=== PATIENT | female | born 2005 | race Caucasian/White ===

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

== ENCOUNTER 2024-04-09 10:20 | Observation (INO) | payer BC, SELFPAY ==
--- OUTSIDE RECORDS SUMMARY | 2024-04-09 10:30 | XMS_ITS | CCD ---
Author Organization [facility] Care Team Providers Care Rough Rice Grader Name Role Phone Adonay ([facility]), ALVARADO Cameron Attending Provider [phone] Health Dept, [facility] Primary Care Provider [phone] Adonay ([facility])Madeline Attending Orestes Adonay ([facility]), Madeline Cameron Admitting [facility] Dept, [facility] Primary Care Unavailable Problems Problem Classification Problem Date Documented Da te Episodic/Chronic Other and delivery including normal (1 source) Encounter for supervision of normal , unspecified, first trimester; Translations: [Encounter for supervision of normal , unspecified, first trimester] Onset: 01-08-2024 Episodic Results Test Name Value Interpretation Reference Range Facil ity US OB >= 14 weeks Fetuson US OB >= 14 weeks Fetus [facility] Main [address] [address] Ultrasound Report Signed Patient: Casandra Dias MR#: [id number] : 2005 Acct:[id number] Age/Sex: 18 / F ADM Date: 01/08/24 Loc: Room: Type: [facility] Attending Dr: Madeline Urias ([facility]) ALVARADO Ordering Provider: Madeline Urias APRN, WHCNP Date of Service: 01/08/24 US/US OB >= 14 weeks Fetus: Z3A.01 Copies to: Madeline Urias APRN, WHCNP US OB >= 14 weeks Fetus 01/08/2024 11:27 AM SIGNS AND SYMPTOMS: Check dates, cramping COMPARISON: None. TECHNIQUE: Limited pelvic ultrasound using transvesical sonography. FINDINGS: An early intrauterine is identified. The visualized pole has an estimated gestational age of 6 weeks 4 days by crown-rump length which measures 6.79 mm . Cardiac flicker is visualized. heart rate could not be obtained. A normal amount of amniotic fluid is present. There is no evidence for placenta previa or subchorionic hemorrhage. Pelvic survey reveals no gross abnormalities. US/US OB >= 14 weeks Fetus IMPRESSION: Single live IUP with an estimated gestational age of 6w4d weeks/days. Cardiac flicker is visualized. heart rate could not be obtained. Impression dictated by: Henri Mario M.D.01/08/2024 4:22 PM Dictation Location: [place] [address] Tech: Barbara Nuñez Transcribed By: TYLER 01/08/24 1622 Dictated By: Henri Mario II, MD 01/08/24 161 Signed By: 01/08/24 1622 Normal [facility] Encounters Encounter Date Encounter Type Care Provider Facility Start: 01-08-2024 End: 01-08-2024 ambulatory Madeline Urias ([facility]) Facility:[facility] Start: 01-08-2024 End: 01-08-2024 ambulatory [facility] Dept Work Phone: [facility] Work Phone: Start: 01-08-2024 End: 01-08-2024 Patient encounter procedure [facility] Dept Work Phone: [facility] Main [place] Work Phone: Procedures Date Procedure Procedure Detail Performing Clinician Start: 01-08-2024 Diagnostic ultrasoun d of gravid uterus [facility] Dept Work Phone: Payers Date Payer Category Payer Medicaid [id number] 81 [id number] 2024 Self-pay 2024 Unknown [id number] Unknown [id number] Social History Date Type Detail Facility Tobacco smoking stat [facility] Unknown if ever smoked [facility] Work Phone: Start: 2005 Sex Assigned At Female F [facility] Evaluation note Note Date & Type Note Facility Evaluation note No assessment information availa ble [facility] Work Phone: Chief Complaint and Reason for Visit Chief Complaint Z3A.01 Advance Directives No Advanced Directives Records Found Advance Directive Response Recorded Date/ Time Advance Directives No January 07 11:22am Summary Purpose Family History No Family History Records Found Additional Source Comments Care Teams (unrecognized sec tion and content) Team Status: Active Member Role Status Dates [facility] Primary Care Provider Active Team Status: Inactive Member Role Status Dates Madeline Urias ([facility]) , MACHINE REPAIRER MAINTENANCE Attending Provider Active Start: January 08, 2024 End: January 08, 2024 [facility] Primary Care Provider Active Start: January 08, 2024 End: January 08, 2024 Goals (unrecognized section and content) Goals may be documented in a n alternate section INFORMATION SOURCE (unrecogn ized section and content) DATE CREATED AUTHOR 03/18/2024 [facility] y[facility] FOR RECORDS PERTAINING TO PATIENTS WHO ARE OR HAVE BEEN ENROLLED IN A CHEMICAL DEPENDENCY/SUBSTANCEABUSE PROGRAM, SOME INFORMATION MAY BE OMITTED. This clinical summary was aggregated from multiple sources. Caution should be exercised in using it in the provision of clinical care. This summary normalizes information from multiple sources, and as a consequence, information in this document may materially change the coding, format and clinical context of patient data. In addition, data may be omitted in some cases. CLINICAL DECISIONS SHOULD BE BASED ON THE PRIMARY CLINICAL RECORDS. [employer] provides no warranty or guarantee of the accuracy or completeness of information in this document.
== END 2024-04-09 11:06 | disposition home or self-care (01) ==
PROVIDERS: Admitting Provider Obstetrics & Gynecology; Visit Provider Obstetrics & Gynecology
DX: O36.8120 Decreased fetal movements, second trimester, not applicable or unspecified (principal); Z3A.19 19 weeks gestation of pregnancy
CPT/HCPCS: G0378; G0379

== ENCOUNTER 2024-04-27 11:01 | Outpatient (OUT) | payer BC, SELFPAY ==
--- NOTE | 2024-04-27 11:04 | US_ITS ---
[address] [address] Patient Name: SAMIRA STUART MRN: [id number] date: 2005 Sex: F Assigned Patient Location: [facility] Current Patient Location: [facility] Accession/Order Number: [id number] Exam Date: 04/27/2024 11:04 Report Date: 04/27/2024 12:34 At the request of: AVERY RAYGOZA Procedure: US OB cervical length EXAMINATION: US OB anatomy, US OB cervical length HISTORY: ANATOMY COMPARISON: No relevant comparison available. TECHNIQUE: Transabdominal sonographic examination was performed for obstetrical and evaluation. FINDINGS: Number: 1 Heart Rate: 137 H.B. /min Amniotic Fluid Volume: Subjectively normal Placental Location: Anterior with lower margin 8.5 cm from os. Cervix Length: 4.0; closed. ANATOMY: Normal Structures -cerebellum, choroid plexus, cisterna magna, lateral cerebral ventricles, orbits, midline falx, hard palate, four-chamber heart, RVOT, LVOT, stomach, kidneys, bladder, umbilical cord insertion into abdomen, three-vessel cord, cervical spine, thoracic spine, lumbar spine, sacral spine, right upper extremity, left upper extremity, right lower extremity, left lower extremity. SUBOPTIMALLY SEEN: None ABNORMALITIES: None BIOMETRY: BPD: 5.5 cm; 22 weeks 5 days; 67% HC: 20.2 cm; 22 weeks 2 days; 46% AC: 17.6 cm; 22 weeks 4 days; 55% FL: 4.1 cm; 23 weeks 0 days; 69% EFW:527 g; 73% FL/AC: 22.9 FL/BPD: 73.7 HC/AC: 1.15 GESTATIONAL AGE: Age by EDC: 22 weeks 1 day LATASHA by EDC: 08/30/2024 Age by current US: 22 weeks 5 days LATASHA by current US: 08/26/2024 US/US OB cervical length IMPRESSION: 1. Single live intrauterine with growth detailed above. Electronically authenticated by: ROWAN BARRIOS Date: 04/27/2024 12:34
--- NOTE | 2024-04-27 11:04 | US_ITS ---
[address] [address] Patient Name: SAMIRA STUART MRN: [id number] date: 2005 Sex: F Assigned Patient Location: [facility] Current Patient Location: [facility] Accession/Order Number: [id number] Exam Date: 04/27/2024 11:05 Report Date: 04/27/2024 12:34 At the request of: AVERY RAYGOZA Procedure: US OB anatomy EXAMINATION: US OB anatomy, US OB cervical length HISTORY: ANATOMY COMPARISON: No relevant comparison available. TECHNIQUE: Transabdominal sonographic examination was performed for obstetrical and evaluation. FINDINGS: Number: 1 Heart Rate: 137 H.B. /min Amniotic Fluid Volume: Subjectively normal Placental Location: Anterior with lower margin 8.5 cm from os. Cervix Length: 4.0; closed. ANATOMY: Normal Structures -cerebellum, choroid plexus, cisterna magna, lateral cerebral ventricles, orbits, midline falx, hard palate, four-chamber heart, RVOT, LVOT, stomach, kidneys, bladder, umbilical cord insertion into abdomen, three-vessel cord, cervical spine, thoracic spine, lumbar spine, sacral spine, right upper extremity, left upper extremity, right lower extremity, left lower extremity. SUBOPTIMALLY SEEN: None ABNORMALITIES: None BIOMETRY: BPD: 5.5 cm; 22 weeks 5 days; 67% HC: 20.2 cm; 22 weeks 2 days; 46% AC: 17.6 cm; 22 weeks 4 days; 55% FL: 4.1 cm; 23 weeks 0 days; 69% EFW:527 g; 73% FL/AC: 22.9 FL/BPD: 73.7 HC/AC: 1.15 GESTATIONAL AGE: Age by EDC: 22 weeks 1 day LATASHA by EDC: 08/30/2024 Age by current US: 22 weeks 5 days LATASHA by current US: 08/26/2024 US/US OB anatomy IMPRESSION: 1. Single live intrauterine with growth detailed above. Electronically authenticated by: ROWAN BARRIOS Date: 04/27/2024 12:34
--- OUTSIDE RECORDS SUMMARY | 2024-04-27 11:07 | XMS_ITS | CCD ---
Author Organization [facility] Inform ion [facility] Care Team Providers Care Peer Educator Name Role Phone Adonay ([facility]), ALVARADO Cameron Attending Provider Health Dept, [facility] Primary Care Provider [phone] Adonay ([facility])Madeline [facility] ([facility]), Madeline Cameron [facility] Primary [facility] Unavailable AVERY RAYGOZA Attending Unavailable Problems Problem Classification Problem Date Documented Da te Episodic/Chronic Other and delivery including normal (1 source) Encounter for supervision of normal , unspecified, first trimester; Translations: [Encounter for supervision of normal , unspecified, first trimester] Onset: 01-08-2024 Episodic Results Test Name Value Interpretation Reference Range Facil ity US OB >= 14 weeks Fetuson US OB >= [address] [facility] Main [address] [address] Ultrasound Report Signed Patient: Casandra Dias MR#: [id number] : 2005 Acct:[id number] Age/Sex: 18 / F ADM Date: 01/08/24 Loc: Room: Type: [facility] Attending Dr: Madeline Urias ([facility]) ALVARADO Ordering Provider: Madeline Urias APRN, WHCNP [...] Henri Mario M.D.01/08/2024 4:22 PM Dictation Location: [place] [address] Tech: Barbara Nuñez Transcribed By: TYLER 01/08/24 1622 Dictated By: Henri Mario II, MD 01/08/24 1617 Signed By: 01/08/24 1622 Normal [facility] Encounters Encounter Date Encounter Type Care Provider Facility Start: 04-15-2024 End: 04-15-2024 ambulatory AVERY RAYGOZA Not Available Start: 01-08-2024 End: 01-08-2024 ambulatory Madeline Urias ([facility]) Facility:[facility] Start: 01-08-2024 End: 01-08-2024 [facility] Work Phone: Start: 01-08-2024 End: 01-08-2024 [facility] Main [place] Work Phone: Procedures Date Procedure Procedure Detail Performing Clinician Start: 01-08-2024 Diagnostic ultrasoun [facility] gravid [facility] Work Phone: Payers Date Payer Category Payer Medicaid [id number] 81 [id number] 2024 Self-pay 2023 Unknown [id number] 2004 Unknown [id number] Unknown [id number] Social History Date Type Detail Facility [facility] Work Phone: Start: 2005 Sex Assigned At Female F [facility] Evaluation note Note Date & Type Note Facility Evaluation note No assessment information availa ble [facility] Work Phone: Chief Complaint and Reason for Visit Chief Complaint Z3A.01 Advance Directives No Advanced Directives Records Found Advance Directive Response Recorded Date/ Time Advance Directives No January 07 11:22am Summary Purpose Family History No Family History Records FoundNo Family History Records Found Additional Source Comments Care Teams (unrecognized sec tion and content) Team Status: Active Member Role Status Dates [facility] Primary Care Provider Active Team Status: Inactive Member Role Status Dates Madeline Urias ([facility]) , ENCYCLOPEDIA RESEARCH WORKER Attending Provider Active Start: January 08, 2024 End: January 08, 2024 [facility] Primary Care Provider Active Start: January 08, 2024 End: January 08, 2024 Goals (unrecognized section and content) Goals may be documented in a n alternate section INFORMATION SOURCE (unrecogn ized section and content) DATE CREATED AUTHOR 03/18/2024 [facility] y[facility]ician [facility] DATE CREATED AUTHOR AUTHOR'S KPIZ ATION 04/16/2024 [facility] dical Specialists [facility] FOR RECORDS PERTAINING TO PATIENTS WHO ARE [...] BE BASED ON THE PRIMARY CLINICAL RECORDS. [facility] [employer] [facility]. provides no warranty or guarantee of the accuracy or completeness of information in this document.
== END 2024-04-27 11:02 | disposition home or self-care (01) ==
LOC: NOMS 11:01
PROVIDERS: Visit Provider Obstetrics & Gynecology
DX: Z36.89 Encounter for other specified antenatal screening (principal); Z3A.22 22 weeks gestation of pregnancy
CPT/HCPCS: 76805; 76817

== ENCOUNTER 2024-05-24 11:51 | Outpatient (OUT) | payer BC, SELFPAY ==
--- OUTSIDE RECORDS SUMMARY | 2024-05-24 12:00 | XMS_ITS | CCD ---
Author Organization [facility] Inform ion [facility] Care Team Providers Care Video Producer Name Role Phone Adonay ([facility]), ALVARADO Cameron Attending Provider Health Dept, [facility] Primary Care Provider Adonay ([facility])Madeline Attending Unavailcarolyn e Adonay ([facility]), Madeline Cameron [facility] Primary Care Unavailable AVERY RAYGOZA Attending Unavailable AVERY RAYGZOA Attending Unavailable Problems Problem Classification Problem Date Documented Da te Episodic/Chronic Other and delivery including normal (1 source) Encounter for supervision of normal , unspecified, first trimester; Translations: [Encounter for supervision of normal , unspecified, first trimester] Onset: 01-08-2024 Episodic Results Test Name Value Interpretation Reference Range Facil ity US OB >= 14 weeks Fetuson US OB >= 14 weeks Fetus [facility] [place] [address] Ultrasound Report Signed Patient: Casandra Dias MR#: [id number] : 2005 Acct:[id number] Age/Sex: 18 / F ADM Date: 01/08/24 Loc: Room: Type: [facility] Attending Dr: Madeline Urias ([facility]) ALVARADO Ordering Provider: Madeline Urias [...] Henri Mario M.D.01/08/2024 4:22 PM Dictation Location: [place] [address] Tech: Barbara Nuñez Transcribed By: TYLER 01/08/24 1622 Dictated By: Henri Mario II, MD 01/08/24 1617 Signed By: 01/08/24 1622 Normal [facility] Encounters Encounter Date Encounter Type Care Provider Facility Start: 05-12-2024 End: 05-12-2024 ambulatory AVERY IDALMIS Not Available Start: 04-15-2024 End: 04-15-2024 ambulatory AVERY IDALMIS Not Available Start: 01-08-2024 End: 01-08-2024 ambulatory Madeline Urias ([facility]) Facility:[facility] Start: 01-08-2024 End: 01-08-2024 ambulatory [employer] [facility] Dept Work Phone: [facility] Work Phone: Start: 01-08-2024 End: 01-08-2024 Patient encounter procedure [employer] [facility] Dept Work Phone: [facility]-Ul[facility]ound Main [place] Work Phone: Procedures Date Procedure Procedure Detail Performing Clinician Start: 01-08-2024 Diagnostic ultrasoun d of gravid uterus [employer] [facility] Work Phone: Payers Date Payer Category Payer Medicaid [id number] 81 [id number] 2024 Self-pay 2023 Unknown [id number] 2004 Unknown [id number] 2004 Unknown [id number] Unknown [id number] Social History Date Type Detail Facility [facility] Work Phone: Start: 2005 Sex Assigned At Female F [facility] Evaluation note Note Date & Type Note Facility Evaluation note No assessment information availa ble [facility] Work Phone: Chief Complaint and Reason for Visit Chief Complaint Z3A.01 Advance Directives No Advanced Directives Records Found Advance Directive Response Recorded Date/ Time Advance Directives No January 07 024 11:22am Summary Purpose Family History No Family History Records FoundNo Family History Records Found Additional Source Comments Care Teams (unrecognized sec tion and content) Team Status: Active Member Role Status Dates [facility] Active Team Status: Inactive Member Role Status Dates Madeline Urias ([facility]) , DELIVER DRIVER Attending Provider Active Start: January 08, 2024 End: January 08, 2024 [facility] Active Start: January 08, 2024 End: January 08, 2024 Goals (unrecognized section and content) Goals may be documented in a n alternate section INFORMATION SOURCE (unrecogn ized section and content) DATE CREATED AUTHOR 03/18/2024 [facility] DATE CREATED AUTHOR CELESTE ESQUIVEL 05/16/2024 [facility] dical Specialists [employer] FOR RECORDS PERTAINING TO PATIENTS WHO ARE [...] BE BASED ON THE PRIMARY CLINICAL RECORDS. [facility] [email or web address] [facility]. provides no warranty or guarantee of the accuracy or completeness of information in this document.
[2024-05-24 13:19] LABS: Basophils Percent Auto 0.3 % (0.2-2.0); Eosinophils Absolute Auto 0.1 10^3/uL (0.0-0.7); Eosinophils Percent Auto 1.4 % (0.9-7.0); Hematocrit 30.5 % (36.0-48.0); Hemoglobin 9.9 g/dL (12.0-16.0); Immature Granulocytes Abs Auto 0.05 10^3/uL (0.00-0.03); Immature Granulocytes Pct Auto 0.5 % (0.0-0.5); Lymphocytes Percent Auto 19.1 % (20.5-60.0); Mean Corpuscular HGB Conc 32.5 g/dL (29.9-35.2); Mean Corpuscular Hemoglobin 30.7 pg (26.7-34.0); Mean Corpuscular Volume 94.7 fL (81.0-99.0); Mean Platelet Volume 9.3 fL (9.5-13.5); Monocytes Absolute Auto 0.6 10^3/uL (0.3-0.8); Neutrophils Absolute Auto 7.5 10^3/uL (1.4-6.5); Neutrophils Percent Auto 72.7 % (43.0-75.0); Platelet Count 297 10^3/uL (150-450); Red Blood Count 3.22 10^6/uL (4.20-5.40); Red Cell Distribution Width 12.7 % (11.0-15.0); White Blood Count 10.3 10^3/uL (4.0-11.0)
[2024-05-24 13:32] LABS: Glucose 1 Hour 114 mg/dL (<130)
== END 2024-05-24 11:52 | disposition home or self-care (01) ==
LOC: LAB 11:52
PROVIDERS: Visit Provider Obstetrics & Gynecology
DX: Z13.1 Encounter for screening for diabetes mellitus (principal)
CPT/HCPCS: 36415; 82950; 85025

== ENCOUNTER 2024-06-16 12:20 | Emergency (ER) | payer BC, SELFPAY ==
[2024-06-16] VITALS (16 sets, daily range): BP systolic 110–115; BP diastolic 63–73; PULSE 71–94; TEMP 37.1; O2SAT 96–100; BMI 21.9
--- NOTE | 2024-06-16 12:42 | ECG_ITS ---
The [facility] Test Date: 2024-06-16 Pat Name: SAMIRA STUART Department: Room: - Gender: Female Movement Assembler: : 2005 Requested By: [id number] Order Number: [id number] Reading MD: JT JACKSON Measurements Intervals [place] Rate: 86 P: 24 [place]: 132 QRS: 104 QRSD: 86 T: 15 QT: 352 QTc: 395 Interpretive Statements 1100 Sinus rhythm 7100 Abnormal right axis deviation 9130 borderline ECG No previous ECG available for comparison Electronically Signed On 06-16-2024 18:11:27 EDT by JT JACKSON
--- NOTE | 2024-06-16 12:48 | ED_ITS ---
HPI HPI - General Adult General Chief complaint: Syncope Stated complaint: FAINT, LIGHTHEADEDNESS Time Seen by Provider: 06/16/24 12:44 Source: patient and friend Mode of arrival: walk-in Limitations: no limitations History of Present Illness HPI narrative: Patient is a 18-year-old female who is presenting with a near syncopal episode at work today. 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 Patient is approximate 29 weeks . Patient says that she is drinking a lot of fluid typically and does not feel that she is dehydrated. Patient was at work, she became lightheaded, clammy, flushed, and felt like she was going to pass out. Patient was able to sit down. She did not have a true syncopal episode. Patient called her OB office and they recommended she come to the ER for evaluation. Patient is a G1, P0. Patient has no pelvic pain, vaginal bleeding. No urinary frequency urgency or burning. No flank pain or back pain. Patient's boyfriend is at bedside. Patient has no headache or neck pain. Patient feels better at this time. Patient came into the ER for evaluation, she takes no other medications daily besides vitamins. Patient does have a history of iro n deficiency. All systems are negative except as noted/marked. All systems reviewed and otherwise negative. Nurses note and vital signs reviewed and patient is not hypoxic. General: The patient appears well and in no apparent distress. Patient is resting comfortably on cart. Patient is not toxic, lethargic, or listless Skin: Warm, dry, no pallor noted. There is no rash noted. No petechiae, purpura. Head: Normocephalic, atraumatic Eye: Normal conjunctiva, no drainage, EOMI. PERRL Ears, Nose, Mouth, and Throat: oral mucosa is moist. Nares patent. Mouth without vesicles. Cardiovascular: Regular Rate and Rhythm, no murmur, gallop, rub Respiratory: Patient is in no distress, no accessory muscle use, lungs are clear to auscultation, no wheezing, rales or rhonchi Back: non-tender, no CVA tenderness bilaterally to percussion. No CT LS midline pain GI: Gravid uterus, no pain to her abdomen. No suprapubic tenderness to palpation. No tenderness to palpation, no masses appreciated. No rebound, guarding, or rigidity noted. No distention Musculoskeletal: Patient has full range of motion of all of the extremities, no motor, sensory, or focal neurological deficits Neurological: A&O x4, normal speech Psychiatric: Cooperative Related Data Home Medications ?Medication ?Instructions ?Recorded ?Confirmed pediatric multivitamin no.49 1 tab PO DAILY 04/09/24 06/16/24 (Flintstones Gummies chewable tablet) Allergies Allergy/AdvReac Type Severity Reaction Status Date / Time No Known Drug Allergies Allergy Verified 06/16/24 12:32 Opioid HPI Opioid Management Most Recent Opioid Data: No Data to Display Exam Constitutional Vital Signs, click to edit/add: Last Vital Signs Temp 98.7 F 06/16/24 12:26 Pulse 75 06/16/24 14:20 Resp 19 06/16/24 14:20 BP 112/65 06/16/24 13:01 Pulse Ox 98 06/16/24 14:20 O2 Del Method Room Air 06/16/24 12:26 Course Vital Signs Vital signs: Vital Signs Temperature 98.7 F 06/16/24 12:26 Pulse Rate 76 06/16/24 12:26 Respiratory Rate 16 06/16/24 12:26 Blood Pressure 115/73 06/16/24 12:26 Pulse Oximetry 96 06/16/24 12:26 Oxygen Delivery Method Room Air 06/16/24 12:26 Temperature 98.7 F 06/16/24 12:26 Pulse Rate 75 06/16/24 14:20 Respiratory Rate 19 06/16/24 14:20 Blood Pressure 112/65 06/16/24 13:01 Pulse Oximetry 98 06/16/24 14:20 Oxygen Delivery Method Room Air 06/16/24 12:26 Medical Decision Making [facility] Narrative Medical decision making narrative: Patient EKG shows no acute abnormalities. Patient's orthostatics were negative. Patient had a cardiac workup along with urine sample. Orthostatics were negative. Patient was given 1 L of IV fluids. Electrolytes showed no acute abnormalities. Patient has anemia. Patient will follow-up with TURNING SANDER OPERATOR. No questions at DC Lab Data Labs: Lab Results 06/16/24 06/16/24 Range/Units 13:06 14:05 WBC 13.3 H (4.0-11.0) 10^3/uL RBC 3.24 L (4.20-5.40) 10^6/uL Hgb 9.3 L (12.0-16.0) g/dL Hct 28.9 L (36.0-48.0) % MCV 89.2 (81.0-99.0) fL MCH 28.7 (26.7-34.0) pg MCHC 32.2 (29.9-35.2) g/dL RDW 12.7 (11.0-15.0) % Plt Count 296 (150-450) 10^3/uL MPV 9.4 L (9.5-13.5) fL Neut % (Auto) 79.4 H (43.0-75.0) % Lymph % (Auto) 13.4 L (20.5-60.0) % [place] % (Auto) 5.4 (1.7-12.0) % Eos % (Auto) 0.2 L (0.9-7.0) % Baso % (Auto) 0.2 (0.2-2.0) % Neut # (Auto) 10.6 H (1.4-6.5) 10^3/uL Lymph # (Auto) 1.8 (1.2-3.8) 10^3/uL [place] # (Auto) 0.7 (0.3-0.8) 10^3/uL Eos # (Auto) 0.0 (0.0-0.7) 10^3/uL Baso # (Auto) 0.0 (0.0-0.1) 10^3/uL Abs Immat Gran (auto) 0.19 H (0.00-0.03) 10^3/uL Imm/Tot Granulo (auto) 1.4 H (0.0-0.5) % Sodium 136 (136-145) mmol/L Potassium 3.9 (3.5-5.1) mmol/L Chloride 103 (98-107) mmol/L Carbon Dioxide 24.3 (21.0-32.0) mmol/L Anion Gap 12.6 BUN 5.0 L (6.4-19.3) mg/dL Creatinine 0.53 L (0.55-1.02) mg/dL Est GFR ( Amer) >60 (>=60) Est GFR (Non-Af Amer) >60 (>=60) BUN/Creatinine Ratio 9.4 Glucose 84 (74-106) mg/dL Calcium 8.5 (8.5-10.1) mg/dL Magnesium 1.6 L (1.8-2.4) mg/dL Total Bilirubin 0.4 (0.2-1.0) mg/dL AST 14 L (15-37) U/L ALT 17 (14-59) U/L Alkaline Phosphatase 99 (46-116) U/L Troponin I High Sens <4.0 L (4.0-51.3) pg/mL Total Protein 6.6 (6.4-8.2) g/dL Albumin 2.7 L (3.4-5.0) g/dL Globulin 3.9 g/dL Albumin/Globulin Ratio 0.7 Urine Color Lt. yellow (YELLOW) Urine Clarity Clear (CLEAR) Urine pH 6.5 (5.0-9.0) Ur Specific [place] <=1.005 A (1.005-1.025) Urine Protein Negative (NEG/TRACE) mg/dL Urine Glucose (UA) Negative (NEGATIVE) mg/dL Urine Ketones Negative (NEGATIVE) mg/dL Urine Occult Blood Negative (NEGATIVE) Urine Nitrite Negative (NEGATIVE) Urine Bilirubin Negative (NEGATIVE) Urine Urobilinogen 0.2 (0.2-1.0) EU/dL Ur Leukocyte Esterase Small A (NEGATIVE) Urine RBC 0-2 (0-2) #/HPF Urine WBC 2-5 A (NONE SEEN) #/HPF Ur Squamous Epith Cells Few A (NONE/RARE) #/LPF Urine Crystals None seen (None Seen) #/HPF Urine Bacteria Trace A (NONE SEEN) #/HPF Urine Casts None seen (NONE SEEN) #/LPF Urine Mucus Trace A (NONE SEEN) ECG Data Attestation: I personally reviewed and interpreted this ECG as follows: (EKG interpretation. Normal sinus rhythm at 86 beats a minute. Normal axis deviation. No acute ST elevation, no acute ectopy. QTc of 395) Discharge Plan Discharge Stand Alone Forms: Work/School Release, Portal Instructions Chief Complaint: Syncope Clinical Impression: Near syncope Patient Disposition: Home, Self-Care Condition: Fair Prescriptions / Home Meds: No Action Flintstones Gummies Tablet,Chewable 1 tab PO DAILY Print Language: Azeri Instructions: Near Syncope (ED) Additional Instructions: Increase fluids as you have been. Continue vitamins. Follow-up with PCP and TURNING SANDER OPERATOR. No acute findings on today's testing Referrals: Physician,Non-Staff, MD [Primary Care Provider] - 1 week
[2024-06-16 13:13] LABS: Basophils Percent Auto 0.2 % (0.2-2.0); Eosinophils Percent Auto 0.2 % (0.9-7.0); Hematocrit 28.9 % (36.0-48.0); Hemoglobin 9.3 g/dL (12.0-16.0); Immature Granulocytes Abs Auto 0.19 10^3/uL (0.00-0.03); Immature Granulocytes Pct Auto 1.4 % (0.0-0.5); Lymphocytes Absolute Auto 1.8 10^3/uL (1.2-3.8); Lymphocytes Percent Auto 13.4 % (20.5-60.0); Mean Corpuscular HGB Conc 32.2 g/dL (29.9-35.2); Mean Corpuscular Hemoglobin 28.7 pg (26.7-34.0); Mean Corpuscular Volume 89.2 fL (81.0-99.0); Mean Platelet Volume 9.4 fL (9.5-13.5); Monocytes Absolute Auto 0.7 10^3/uL (0.3-0.8); Monocytes Percent Auto 5.4 % (1.7-12.0); Neutrophils Absolute Auto 10.6 10^3/uL (1.4-6.5); Neutrophils Percent Auto 79.4 % (43.0-75.0); Platelet Count 296 10^3/uL (150-450); Red Blood Count 3.24 10^6/uL (4.20-5.40); Red Cell Distribution Width 12.7 % (11.0-15.0); White Blood Count 13.3 10^3/uL (4.0-11.0)
[2024-06-16 13:22] LABS: Magnesium 1.6 mg/dL (1.8-2.4)
[2024-06-16 13:31] LABS: Alanine Aminotransferase 17 U/L (14-59); Albumin Globulin Ratio 0.7; Albumin Level 2.7 g/dL (3.4-5.0); Alkaline Phosphatase 99 U/L (46-116); Anion Gap 12.6; Aspartate Amino Transferase 14 U/L (15-37); BUN Creatinine Ratio 9.4; Bilirubin Total 0.4 mg/dL (0.2-1.0); Calcium 8.5 mg/dL (8.5-10.1); Carbon Dioxide 24.3 mmol/L (21.0-32.0); Chloride 103 mmol/L (98-107); Estimated GFR (African America >60 (>=60); Estimated GFR (Non-African Ame >60 (>=60); Globulin 3.9 g/dL; Glucose 84 mg/dL (74-106); Potassium 3.9 mmol/L (3.5-5.1); Sodium 136 mmol/L (136-145); Total Protein 6.6 g/dL (6.4-8.2); Troponin I High Sensitivity <4.0 pg/mL (4.0-51.3)
[2024-06-16 14:16] LABS: Bilirubin Urine NEGATIVE (NEGATIVE); Blood Urine NEGATIVE (NEGATIVE); Clarity Urine CLEAR (CLEAR); Color Urine LT. YELLOW (YELLOW); Glucose Urine UA NEGATIVE (NEGATIVE); Ketones Urine NEGATIVE (NEGATIVE); Leukocyte Esterase Urine SMALL (NEGATIVE); Nitrite Urine NEGATIVE (NEGATIVE); Protein Urine NEGATIVE (NEG/TRACE); Specific Gravity Urine <=1.005 (1.005-1.025); Urobilinogen Urine 0.2 EU/dL (0.2-1.0); pH Urine 6.5 (5.0-9.0)
[2024-06-16 14:25] LABS: Bacteria Urine TRACE #/HPF (NONE SEEN); Cast Seen? NONE SEEN #/LPF (NONE SEEN); Crystals Seen? None Seen #/HPF (None Seen); Mucus Urine TRACE (NONE SEEN); RBC Urine 0-2 #/HPF (0-2); Squamous Epithelial Cell Urine FEW #/LPF (NONE/RARE)
== END 2024-06-16 14:52 | disposition home or self-care (01) ==
PROVIDERS: Emergency Provider Emergency Medicine
DX: O99.891 Other specified diseases and conditions complicating pregnancy (principal); R55 Syncope and collapse; Z3A.29 29 weeks gestation of pregnancy
CPT/HCPCS: 36415; 80053; 81001; 83735; 84484; 85025; 93005; 99284

== ENCOUNTER 2024-07-05 13:19 | Outpatient (OUT) | payer BC, SELFPAY ==
[2024-07-05 13:49] LABS: Basophils Percent Auto 0.2 % (0.2-2.0); Eosinophils Absolute Auto 0.1 10^3/uL (0.0-0.7); Hematocrit 29.5 % (36.0-48.0); Hemoglobin 9.1 g/dL (12.0-16.0); Immature Granulocytes Abs Auto 0.08 10^3/uL (0.00-0.03); Immature Granulocytes Pct Auto 0.7 % (0.0-0.5); Lymphocytes Absolute Auto 1.9 10^3/uL (1.2-3.8); Lymphocytes Percent Auto 17.6 % (20.5-60.0); Mean Corpuscular HGB Conc 30.8 g/dL (29.9-35.2); Mean Corpuscular Hemoglobin 27.1 pg (26.7-34.0); Mean Corpuscular Volume 87.8 fL (81.0-99.0); Mean Platelet Volume 9.5 fL (9.5-13.5); Monocytes Absolute Auto 0.6 10^3/uL (0.3-0.8); Monocytes Percent Auto 5.4 % (1.7-12.0); Neutrophils Absolute Auto 8.3 10^3/uL (1.4-6.5); Neutrophils Percent Auto 75.1 % (43.0-75.0); Platelet Count 289 10^3/uL (150-450); Red Blood Count 3.36 10^6/uL (4.20-5.40); Red Cell Distribution Width 13.4 % (11.0-15.0)
[2024-07-05 13:56] LABS: Estimated Average Glucose 100 mg/dL; Glycohemoglobin A1C 5.1 % (4.5-6.2)
[2024-07-06 06:09] LABS: HBsAg Screen Negative (Negative); HCV Ab Non Reactive (Non Reactive); HIV Ab/p24 Ag Screen Non Reactive (Non Reactive)
[2024-07-06 07:19] LABS: Rubella Antibodies, IgG <0.90 index (Immune >0.99)
[2024-07-06 13:08] LABS: Rapid Plasma Reagin, Quant Non Reactive titer (NonRea<1:1)
== END 2024-07-05 13:20 | disposition home or self-care (01) ==
LOC: LAB 13:23
PROVIDERS: Visit Provider Obstetrics & Gynecology
DX: N92.6 Irregular menstruation, unspecified (principal)
CPT/HCPCS: 36415; 83036; 85025; 86592; 86762; 86803; 86850; 86900; 86901; 87086; 87340; 87389

== ENCOUNTER 2024-07-12 08:48 | Outpatient (OUT) | payer BC, SELFPAY ==
--- NOTE | 2024-07-12 08:50 | US_ITS ---
[address] [address] Patient Name: SAMIRA STUART MRN: [id number] date: 2005 Sex: F Assigned Patient Location: [facility] Current Patient Location: [facility] Accession/Order Number: [id number] Exam Date: 07/12/2024 08:51 Report Date: 07/12/2024 11:07 At the request of: AVERY RAYGOZA Procedure: US OB growth EXAMINATION: US OB growth HISTORY: INCONSISTENT SIZE COMPARISON: No relevant comparison available. FINDINGS: Heart Rate: 133 bpm Amniotic Fluid Volume: 9.9 cm, largest fluid pocket 3.9 cm Number: 1 Position: Cephalic presentation, longitudinal lie BIOMETRY: BPD: 8.35 cm; 33 weeks 4 days; 62.10 % HC: 30.94 cm; 34 weeks 4 days; 53.80 % AC: 29.57 cm; 33 weeks 4 days; 67.50 % FL: 6.42 cm; 33 weeks 1 day; 42.30 % EFW: 2206.98 g; 58.30 %, 4 lbs. 14 oz. FL/AC: 21.71 FL/BPD: 76.89 HC/AC: 1.05 GESTATIONAL AGE: Age by EDC: 33 weeks 0 days LATASHA by EDC: 2024-08-30 Age by US: 33 weeks 2 days LATASHA by US: 2024-08-28 US/US OB growth IMPRESSION: Normal interval growth Electronically authenticated by: DAVI BURNHAM Date: 07/12/2024 11:07
== END 2024-07-12 08:49 | disposition home or self-care (01) ==
LOC: NOMS 08:48
PROVIDERS: Visit Provider Obstetrics & Gynecology
DX: O26.843 Uterine size-date discrepancy, third trimester (principal); Z3A.33 33 weeks gestation of pregnancy
CPT/HCPCS: 76816

== ENCOUNTER 2024-07-29 01:19 | Observation (INO) | payer BC, OTHER, SELFPAY ==
--- OUTSIDE RECORDS SUMMARY | 2024-07-29 01:23 | XMS_ITS | CCD ---
Author Organization [facility] InformCount includes the [facility] Care Team Providers Care Regulatory Intern Name Role Phone Adonay ([facility]), ALVARADO Cameron Attending Provider Health Dept, [facility] Primary Care Provider Adonay ([facility])Madeline Attending Unavailcarolyn e Adonay ([facility]), Madeline Cameron Admitting Unavaillocated within [facility] e Health Dept, [facility] Primary Care Unavailable AVERY RAYGOZA Attending Unavailable IDALMIS, AVERY Attending Unavailable JIM SERRANO Attending Unavailable IDALMIS, AVERY Attending Unavailable IDALMIS, AVERY Attending Unavailable IDALMIS, AVERY Attending Unavailable Problems Problem Classification Problem Date Documented Da te Episodic/Chronic Other and delivery including normal (1 source) Encounter for supervision of normal , unspecified, first trimester; Translations: [Encounter for supervision of normal , unspecified, first trimester] Onset: 01-08-2024 Episodic Results Test Name Value Interpretation Reference Range Facil ity US OB >= 14 weeks Fetuson US OB >= 14 weeks Fetus [facility] Main [address] [address] Ultrasound Report Signed Patient: Casandra Dais MR#: [id number] : 2005 Acct:[id number] Age/Sex: 18 / F ADM Date: 01/08/24 Loc: Room: Type: [facility] CLI Attending Dr: Madeline Urias ([facility]) ALVARADO Ordering Provider: Mdaeline rUias APRN, WHCNP Date of Service: 01/08/24 US/US OB >= 14 weeks Fetus: Z3A.01 Copies to: Madeline Rice, CATH LAB TECHNOLOGIST, WHCNP US OB >= 14 weeks Fetus [...] Henri Mario M.D.01/08/2024 4:22 PM Dictation Location: [place] [address] Tech: Barbara Nuñez Transcribed By: TYLER 01/08/24 1622 Dictated By: Henri Mairo II, MD 01/08/24 1617 Signed By: 01/08/24 1622 Normal [facility] Encounters Encounter Date Encounter Type Care Provider Facility Start: 07-19-2024 End: 07-19-2024 ambulatory AVERY IDALMIS Not Available Start: 07-05-2024 End: 07-05-2024 ambulatory AVERY IDALMIS Not Available Start: 06-22-2024 End: 06-22-2024 ambulatory AVERY IDALMIS Not Available Start: 06-07-2024 End: 06-07-2024 ambulatory JIM SERRANO Not Available Start: 05-12-2024 End: 05-12-2024 ambulatory AVERY IDALMIS Not Available Start: 04-15-2024 End: 04-15-2024 ambulatory AVERY IDALMIS Not Available Start: 01-08-2024 End: 01-08-2024 ambulatory Madeline Urias ([facility]) Facility:[facility] Start: 01-08-2024 End: 01-08-2024 ambulatory [place] [facility] Dept Work Phone: [facility] Work Phone: Start: 01-08-2024 End: 01-08-2024 Patient encounter procedure [facility] Work Phone: [facility]-Ultrasound Main [place] Work Phone: Procedures Date Procedure Procedure Detail Performing Clinician Start: 01-08-2024 Diagnostic ultrasoun d of gravid uterus [facility] Work Phone: Payers Date Payer Category Payer Medicaid [id number] 81 [id number] 2024 Self-pay 2023 Unknown [id number] 2004 Unknown [id number] 2.16.84 [id number] 2004 Unknown [id number] 2.16.84 [id number] 2004 Unknown [id number] 2.16.84 [id number] 2004 Unknown [id number] 2.16.84 [id number] 2004 Unknown [id number] 2.16.84 [id number] 2004 Unknown [id number] 2.16.84 [id number] Unknown [id number] 2.16.8 [id number] Social History Date Type Detail Facility [facility] Work Phone: Start: 2005 Sex Assigned At Female F [facility] Evaluation note Note Date & Type Note Facility Evaluation note No assessment information availa ble [facility] Work Phone: Chief Complaint and Reason for Visit Chief Complaint Z3A.01 Advance Directives No Advanced Directives Records Found Advance Directive Response Recorded Date/ Time Advance Directives No January 07 024 11:22am Summary Purpose Family History No Family History Records FoundNo Family History Records Found Additional Source Comments Care Teams (unrecognized sec tion and content) Team Status: Active Member Role Status Dates [facility] Active Team Status: Inactive Member Role Status Dates Madeline Urias ([facility]) , CATH LAB TECHNOLOGIST Attending Provider Active Start: January 08, 2024 End: January 08, 2024 [facility] Dept Primary Care Provider Active Start: January 08, 2024 End: January 08, 2024 Goals (unrecognized section and content) Goals may be documented in a n alternate section INFORMATION SOURCE (unrecogn ized section and content) DATE CREATED AUTHOR 03/18/2024 [facility] y[facility]ician Group DATE CREATED AUTHOR 'S CHAKA ATBRITTANY 07/21/2024 [facility] dical Specialists EPIC FOR RECORDS PERTAINING TO [...] BE BASED ON THE PRIMARY CLINICAL RECORDS. [employer] provides no warranty or guarantee of the accuracy or completeness of information in this document.
[2024-07-29 01:47] VITALS: BP 127/69; PULSE 81
== END 2024-07-29 02:30 | disposition home or self-care (01) ==
LOC: FBC 01:21
PROVIDERS: Admitting Provider Obstetrics & Gynecology; Visit Provider Obstetrics & Gynecology
DX: O36.8130 Decreased fetal movements, third trimester, not applicable or unspecified (principal); Z3A.35 35 weeks gestation of pregnancy
CPT/HCPCS: 59025; G0378; G0379

== ENCOUNTER 2024-08-03 10:18 | Outpatient (OUT) | payer BC, OTHER, SELFPAY ==
--- OUTSIDE RECORDS SUMMARY | 2024-08-03 10:24 | XMS_ITS | CCD ---
Author Organization [facility] Care Team Providers Care Farm Management Supervisor Name Role Phone Adonay ([facility]), ALVARADO Cameron Attending Provider Health Dept, [facility] Primary Care Provider [phone] Adonay ([facility])Madeline Attending Unavailcarolyn e Adonay ([facility]), Madeline Cameron Ad[facility], [facility] Primary [...] Fetuson US OB >= 14 weeks Fetus [facility] Main [address] [address] Ultrasound Report Signed Patient: Casandra Dias MR#: [id number] : 2005 Acct:[id number] Age/Sex: 18 / F ADM Date: 01/08/24 Loc: Room: Type: [facility] CLI Attending Dr: Madeline Urias ([facility]) ALVARADO Ordering Provider: Madeline Urias APRN, WHCNP Date of Service: 01/08/24 US/US OB >= 14 weeks Fetus: Z3A.01 Copies to: Madeline Rice, COMMERCIAL TELLER, WHCNP US OB >= 14 weeks Fetus [...] Henri Mario M.D.01/08/2024 4:22 PM Dictation Location: [place] [address] Tech: Barbara Nuñez Transcribed By: TYLER 01/08/24 1622 Dictated By: Henri Mario II, MD 01/08/24 1617 Signed By: 01/08/24 1622 Normal [facility] Encounters Encounter Date Encounter [...] ambulatory Madeline Urias ([facility]) Facility:[facility] Start: 01-08-2024 End: 01-08-2024 ambulatory [place] [facility] Dept Work Phone: [facility] Work Phone: Start: 01-08-2024 End: 01-08-2024 Patient encounter procedure [facility] Work Phone: [place] [facility]-Ultrasound Main [place] Work Phone: Procedures Date Procedure Procedure Detail Performing Clinician Start: 01-08-2024 Diagnostic ultrasoun d of gravid uterus [facility] Work Phone: Payers Date Payer Category Payer Medicaid [id number] 81 [id number] 2024 Self-pay 2023 Unknown [id number] 2004 Unknown [id number] 2.16.84 [id number] 2004 Unknown [id number] 2.16.84 [id number] 2004 Unknown [id number] 2.16.84 0.1.264014.3.579.2.1259 2004 Unknown [id number] 2.16.84 0.1.364307.3.579.2.1259 2004 Unknown [id number] 2.16.84 0.1.368308.3.579.2.1259 2004 Unknown [id number] 2.16.84 0.1.754571.3.579.2.1259 Unknown [id number] 2.16.8 [id number] Social History Date Type Detail Facility [facility] [place] [facility] Work Phone: Start: 2005 Sex Assigned At Female F [facility] Evaluation note Note Date & Type Note Facility Evaluation note No assessment information availa ble [place] [facility] Work Phone: Chief Complaint and Reason for Visit Chief Complaint Z3A.01 Advance Directives No Advanced Directives Records Found Advance Directive Response Recorded Date/ Time Advance Directives No January 07 024 11:22am Summary Purpose Family History No Family History Records FoundNo Family History Records Found Additional Source Comments Care Teams (unrecognized sec tion and content) Team Status: Active Member Role [facility] Active Team Status: Inactive Member Role Status Dates Madeline Urias ([facility]) , COMMERCIAL TELLER Attending Provider Active Start: January 08, 2024 End: January 08, 2024 Jerry [facility] Dept Primary Care Provider Active Start: January 08, 2024 End: January 08, 2024 Goals (unrecognized section and content) Goals may be documented in a n alternate section INFORMATION SOURCE (unrecogn ized section and content) DATE CREATED AUTHOR 03/18/2024 [facility]ician [facility] DATE CREATED AUTHOR 'S CHAKA ATBRITTANY 07/21/2024 [facility] dical Specialists EPIC FOR RECORDS [...] BE BASED ON THE PRIMARY CLINICAL RECORDS. [employer] provides no warranty or guarantee of the accuracy or completeness of information in this document.
[2024-08-04 04:08] LABS: Transferrin 529 mg/dL (192-364)
== END 2024-08-03 10:19 | disposition home or self-care (01) ==
LOC: LAB 10:22
PROVIDERS: Visit Provider Obstetrics & Gynecology
DX: Z34.93 Encounter for supervision of normal pregnancy, unspecified, third trimester (principal); Z3A.36 36 weeks gestation of pregnancy; D64.9 Anemia, unspecified
CPT/HCPCS: 36415; 82728; 84466; 87081; 87150

== ENCOUNTER 2024-08-03 18:49 | Outpatient (REF) | payer BC, OTHER, SELFPAY ==
--- OUTSIDE RECORDS SUMMARY | 2024-08-03 18:53 | XMS_ITS | CCD ---
Author Organization [facility] InformFormerly [facility] Care Team Providers Care Legal Receptionist Name Role Phone Adonay ([facility]), ALVARADO Cameron Attending Provider Health Dept, [facility] Primary Care Provider Adonay ([facility])Madeline Attending Unavailcarolyn e Adonay ([facility]), Madeline Cameron Admitting [facility], [facility] Primary [...] Fetuson US OB >= 14 weeks Fetus [facility] Main [address] [address] Ultrasound Report Signed Patient: Casandra Dias MR#: [id number] : 2005 Acct:[id number] Age/Sex: 18 / F ADM Date: 01/08/24 Loc: Room: Type: [facility] CLI Attending Dr: Madeline Urias ([facility]) ALVARADO Ordering Provider: Madeline Urias APRN, WHCNP Date of Service: 01/08/24 US/US OB >= 14 weeks Fetus: Z3A.01 Copies to: Madeline Rice, HEAVY EQUIPMENT OPERATOR, WHCNP US OB >= 14 weeks Fetus [...] Henri Mario M.D.01/08/2024 4:22 PM Dictation Location: [place] [address] Tech: Barbara Nuñez Transcribed By: TYLER 01/08/24 1622 Dictated By: Henri Mario II, MD 01/08/24 1617 Signed By: 01/08/24 1622 Normal [facility] Encounters Encounter Date Encounter [...] Start: 01-08-2024 End: 01-08-2024 ambulatory Madeline Urias ([facility]) Facility:[facility] Start: 01-08-2024 End: 01-08-2024 ambulatory [place] [facility] Dept Work Phone: [facility] Work Phone: Start: 01-08-2024 End: 01-08-2024 Patient encounter procedure [facility] Work Phone: [facility] Ctr-Ultrasound Main [place] Work Phone: Procedures Date Procedure Procedure Detail Performing Clinician Start: 01-08-2024 Diagnostic ultrasoun d of gravid uterus [facility] Work Phone: Payers Date Payer Category Payer Medicaid [id number] 81 [id number] 2024 Self-pay 2023 Unknown [id number] 2004 Unknown [id number] 2.16.84 [id number] 2004 Unknown [id number] 2.16.84 0.1.443491.3.579.2.1259 2004 Unknown [id number] 2.16.84 0.1.548730.3.579.2.1259 2004 Unknown [id number] 2.16.84 0.1.135931.3.579.2.1259 2004 Unknown [id number] 2.16.84 0.1.893855.3.579.2.1259 2004 Unknown [id number] 2.16.84 0.1.190882.3.579.2.1259 Unknown [id number] 2.16.8 [id number] Social History Date Type Detail Facility [facility] Work Phone: Start: 2005 Sex Assigned At Female F [facility] Evaluation note Note Date & Type Note Facility Evaluation note No assessment information availa ble [facility] Ctr Work Phone: Chief Complaint and Reason for Visit Chief Complaint Z3A.01 Advance Directives No Advanced Directives Records Found Advance Directive Response Recorded Date/ Time Advance Directives No January 07 024 11:22am Summary Purpose Family History No Family History Records FoundNo Family History Records Found Additional Source Comments Care Teams (unrecognized sec tion and content) Team Status: Active Member Role Status [facility] Active Team Status: Inactive Member Role Status Dates Madeline Urias ([facility]) , HEAVY EQUIPMENT OPERATOR Attending Provider Active Start: January 08, 2024 End: January 08, 2024 [facility] Dept Primary Care Provider Active Start: January 08, 2024 End: January 08, 2024 Goals (unrecognized section and content) Goals may be documented in a n alternate section INFORMATION SOURCE (unrecogn ized section and content) DATE CREATED AUTHOR 03/18/2024 [facility] y[facility] Group DATE CREATED AUTHOR 'S CHAKA ATBRITTANY 07/21/2024 [facility] dical Specialists EPIC FOR RECORDS [...] BE BASED ON THE PRIMARY CLINICAL RECORDS. [employer] provides no warranty or guarantee of the accuracy or completeness of information in this document.
== END 2024-08-03 18:50 | disposition home or self-care (01) ==
LOC: LAB 18:49
PROVIDERS: Visit Provider Physician Assistant
DX: Z34.93 Encounter for supervision of normal pregnancy, unspecified, third trimester (principal); Z3A.36 36 weeks gestation of pregnancy
CPT/HCPCS: 87081; 87150

== ENCOUNTER 2024-08-15 09:59 | Outpatient (RCR) | payer BC, OTHER, SELFPAY ==
[2024-08-06 08:50] VITALS: BP 117/74; PULSE 90; TEMP 36.5; O2SAT 98
[2024-08-06] MEDS: IRON SUCROSE COMPLEX 100 MG in 0.9 % SODIUM CHLORIDE 100 ML 420 MG IV (09:13)
[2024-08-08 13:20] VITALS: BP 111/65; PULSE 99; TEMP 36.6; O2SAT 97
[2024-08-08] MEDS: IRON SUCROSE COMPLEX 200 MG in 0.9 % SODIUM CHLORIDE 100 ML 220 MG IV (13:22)
[2024-08-09 13:05] VITALS: BP 107/71; PULSE 86; TEMP 37; O2SAT 97
[2024-08-09] MEDS: IRON SUCROSE COMPLEX 200 MG in 0.9 % SODIUM CHLORIDE 100 ML 220 MG IV (13:19)
[2024-08-11 12:52] VITALS: BP 109/68; PULSE 104; TEMP 36.5; O2SAT 98
[2024-08-11] MEDS: IRON SUCROSE COMPLEX 100 MG in 0.9 % SODIUM CHLORIDE 100 ML 420 MG IV (13:00)
[2024-08-13] MEDS: IRON SUCROSE COMPLEX 200 MG in 0.9 % SODIUM CHLORIDE 100 ML 220 MG IV (10:22)
[2024-08-13 12:12] VITALS: BP 99/65; PULSE 102; TEMP 37.1; O2SAT 97
[2024-08-15 10:10] VITALS: BP 121/71; PULSE 104; TEMP 36.8; O2SAT 97
[2024-08-15] MEDS: IRON SUCROSE COMPLEX 200 MG in 0.9 % SODIUM CHLORIDE 100 ML 220 MG IV (10:25)
== END 2024-08-26 23:59 | disposition home or self-care (01) ==
LOC: INF 09:59
PROVIDERS: Visit Provider Obstetrics & Gynecology
DX: O99.019 Anemia complicating pregnancy, unspecified trimester (principal); D64.9 Anemia, unspecified; Z3A.00 Weeks of gestation of pregnancy not specified
CPT/HCPCS: 96365; 96374; J1756

== ENCOUNTER 2024-08-19 11:59 | Observation (INO) | payer BC, OTHER, SELFPAY ==
--- OUTSIDE RECORDS SUMMARY | 2024-08-19 12:04 | XMS_ITS | CCD ---
Author Organization [facility] Care Team Providers Care Pants Maker Name Role Phone Adonay ([facility]), ALVARADO Cameron Attending Provider Health Dept, [facility] Primary Care Provider Adonay ([facility]), Madeline Cameron Attending Unavailabl e Adonay ([facility]), Madeline Cameron Admitting Unavailabl e Health Dept, [facility] Primary Care Unavailable Dustin Lanza DO Primary Care Provider AVERY FIGUEROA Attending Unavailable CAROLINA, AVERY Attending Unavailable MAGGIE, BRANDI Attending Unavailable CAROLINA, AVERY Attending Unavailable CAROLINA, AVERY Attending Unavailable CAROLINA, AVERY Attending Unavailable MAGGIE, BRANDI Attending Unavailable CAROLINA, AVERY Attending Unavailable CAROLINA, AVERY Attending Unavailable Medications Current Medications Medication Drug Class(es) Dates Sig (Normalized) Sig (Original) docusate sodium 100 mg oral capsule (5 sources) Start: 08-03-2024 End: 08-13-2024 take 1 capsule by mouth twice daily as needed for constipation docusate sodium (Colace) 100 MG capsule Indications: Constipation, unspecified constipation type Take 1 capsule (100 mg) by mouth 2 (two) times a day as needed for constipation for up to 10 days 30 capsule 3 08/03/2024 08/13/2024 Active magnesium oxide 400 mg oral tablet (6 sources) Start: 08-03-2024 End: 09-02-2024 take 1 tablet by mouth once daily magnesium oxide (Mag-Ox) 400 MG tablet Indications: Nonintractable headache, unspecified chronicity pattern, unspecified headache type Take 1 tablet (400 mg) by mouth Daily 30 tablet 6 08/03/2024 09/02/2024 Active omeprazole 20 mg delayed release oral capsule (9 sources) Proton Pump Inhibitor Start: 07-05-2024 End: 10-03-2024 take 1 capsule by mouth before mealtime omeprazole (PriLOSEC) [address] capsule Indications: Gastroesophageal Reflux Disease , Heartburn Take 1 capsule (20 mg) by mouth in the morning. Take before meals. Do not crush or chew.. 30 capsule 2 07/05/2024 10/03/2024 Active polysaccharide iron complex 391 mg oral capsule (8 sources) Start: 08-03-2024 End: 09-02-2024 take 1 capsule by mouth once daily iron polysaccharides (ProFe) 391.3 (180 Fe) MG capsule Indications: Low iron Take 1 capsule (391.3 mg) by mouth Daily 30 capsule 2 08/03/2024 09/02/2024 Active Prenat w/o X-EB-Nqymuyc-FA-DHA (PNV-DHA) 27-0.6-0.4-300 MG capsule (9 sources) Start: 12-31-2023 take 1 capsule by mouth once daily Prenat w/o V-TQ-Ujmgewu-FA-DHA (PNV-DHA) 27-0.6-0.4-300 MG capsule Take 1 capsule by mouth Daily 12/31/2023 Active Problems Problem Classification Problem Date Documented Da te Episodic/Chronic Nutritional deficiencies (2 sources) Serum iron low; Translations: [Iron deficiency] 08-03-2024 Episodic Other gastrointestinal disorders (2 sources) Constipation; Translations: [Constipation, unspecified] 08-03-2024 Episodic Other and delivery including normal (7 sources) Encounter for supervision of normal , unspecified, first trimester; Translations: [Third trimester ] Onset: 01-08-2024 08-03-2024 Episodic Residual codes; unclassified (2 sources) Gestation period, 36 weeks; Translations: [36 weeks gestation of ] 08-03-2024 Episodic Residual codes; unclassified (2 sources) Gestation period, 37 weeks; Translations: [37 weeks gestation of ] 08-10-2024 Episodic Residual codes; unclassified (2 sources) Gestation period, 38 weeks; Translations: [38 weeks gestation of ] 08-16-2024 Episodic Results Test Name Value Interpretation Reference Range Facil ity Urinalysis macro (dipstick) panel (U)on 08-16-2024 Bilirubin, UA Negative Negative - 4(70) +++ mg/dL [facility] Blood, UA Negative Negative - 50 Jona/mcL [facility] Clarity, UA Clear [facility] Color, UA Yellow [facility] Glucose, UA Negative Negative - 1999(110) ++++ mg/dL [facility] Interpretation and review of laboratory results Normal [facility] Ketones, UA Negative Negative - 160(16) ++++ mg/dL [facility] Leukocytes, UA Negative Negative - 500+++ Diane/mcL [facility] Nitrite, UA Negative Negative - Positive [facility] pH, UA 7 5 - 9 [facility] Protein, UA Negative Negative - 1999(20) ++++ mg/dL [facility] Spec Grav, UA 1.015 1 - 1.03 [facility] Urobilinogen, UA 1.0 0.2 - 12 mg/dL [facility] Urinalysis macro (dipstick) panel (U)on 08-10-2024 Bilirubin, UA Negative Negative - 4(70) +++ mg/dL [facility] Blood, UA Negative Negative - 50 Jona/mcL [facility] Clarity, UA Clear [facility] Color, UA Yellow [facility] Glucose, UA Negative Negative - 1999(110) ++++ mg/dL [facility] Interpretation and review of laboratory results Abnormal [facility] Ketones, UA Negative Negative - 160(16) ++++ mg/dL [facility] Leukocytes, UA Positive Negative - 500+++ Diane/mcL [facility] Comment on above: small Nitrite, UA Negative Negative - Positive [facility] pH, UA 7 5 - 9 [facility] Protein, UA Negative Negative - 1999(20) ++++ mg/dL [facility] Spec Grav, UA 1.025 1 - 1.03 [facility] Urobilinogen, UA 1.0 0.2 - 12 mg/dL [facility] Urinalysis macro (dipstick) panel (U)on 08-03-2024 Bilirubin, UA Negative Negative - 4(70) +++ mg/dL [facility] Blood, UA Negative Negative - 50 Jona/mcL [facility] Clarity, UA Clear [facility] Color, UA Yellow [facility] Glucose, UA Negative Negative - 1999(110) ++++ mg/dL [facility] Interpretation and review of laboratory results Abnormal [facility] Ketones, UA Negative Negative - 160(16) ++++ mg/dL [facility] Leukocytes, UA Trace Negative - 500+++ Diane/mcL [facility] Nitrite, UA Negative Negative - Positive [facility] pH, UA 5.5 5 - 9 [facility] Protein, UA Negative Negative - 1999(20) ++++ mg/dL [facility] Spec Grav, UA 1.015 1 - 1.03 [facility] care Urobilinogen, UA 1.0 0.2 - 12 mg/dL [facility] US OB >= 14 weeks Fetuson US OB >= 14 weeks Fetus [facility] Main [place] [address] [place] [address] Ultrasound Report Signed Patient: Casandra Dias MR#: [id number] : 2005 Acct:[id number] Age/Sex: 18 / F ADM Date: 01/08/24 Loc: Room: Type: [facility] Attending Dr: Madeline Urias ([facility]) ALVARADO Ordering Provider: Madeline Urias [...] Henri Mario M.D.01/08/2024 4:22 PM Dictation Location: [place] [address] Tech: Barbara Nuñez Transcribed By: TYLER 01/08/24 1622 Dictated By: Henri Mario II, MD 01/08/24 1617 Signed By: 01/08/24 1622 Normal [facility] Vital Signs Date Time Vital Sign Value Performing Clinician Faci lity 08-16-2024 10:01-0400 Body weight 72.3 kg Avery Carolina DO Work Phone: [facility] 08-16-2024 10:01-0400 Diastolic blood pressure 66 mm[Hg] Avery Carolina DO Work Phone: [facility] 08-16-2024 10:01-0400 Systolic blood pressure 104 mm[Hg] Avery Carolina DO Work Phone: [facility] 08-10-2024 10:34-0400 Body weight 71.89 kg Avery Carolina DO Work Phone: [facility] 08-10-2024 10:34-0400 Diastolic blood pressure 62 mm[Hg] Avery Carolina DO Work Phone: [facility] 08-10-2024 10:34-0400 Systolic blood pressure 116 mm[Hg] Avery Carolina DO Work Phone: [facility] 08-03-2024 11:16-0400 Body weight 72.63 kg Brandi DOTY Work Phone: [facility] 08-03-2024 11:16-0400 Diastolic blood pressure 70 mm[Hg] Brandi DOTY Work Phone: [facility] 08-03-2024 11:16-0400 Systolic blood pressure 120 mm[Hg] Brandi DOTY Work Phone: [facility] Encounters Encounter Date Encounter Type Care Provider Facility Start: 08-16-2024 End: 08-16-2024 Bamboo flowsheet Avery Carolina DO Work Phone: [facility] Start: 08-16-2024 End: 08-16-2024 Bamboo flowsheet Avery Carolina DO Work Phone: [facility] Start: 08-16-2024 End: 08-16-2024 flow sheet Avery Carolina DO Work Phone: [facility] Comment on above: Third trimester preg jayden; 38 weeks gestation of Start: 08-16-2024 End: 08-16-2024 ambulatory AVERY CAROLINA Not Available Start: 08-10-2024 End: 08-10-2024 Bamboo flowsheet Avery Carolina DO Work Phone: [facility] Start: 08-10-2024 End: 08-10-2024 Bamboo flowsheet Avery Carolina DO Work Phone: [facility] Start: 08-10-2024 End: 08-10-2024 ambulatory AVERY CAROLINA Not Available Start: 08-10-2024 End: 08-10-2024 flow sheet Avery Carolina DO Work Phone: [facility] Comment on above: Third trimester preg jayden; 37 weeks gestation of Start: 08-03-2024 End: 08-03-2024 Bamboo flowsheet Brandi DOTY Work Phone: [facility] Start: 08-03-2024 End: 08-03-2024 Bamboo flowsheet Brandi DOTY Work Phone: [facility] Start: 08-03-2024 End: 08-03-2024 flow sheet Brandi DOTY Work Phone: [facility] Comment on above: 36 weeks gestation o f ; Third trimester ; Low iron; Constipation, unspecified constipation type Start: 08-03-2024 End: 08-03-2024 ambulatory BRANDI SERRANO Not Available Start: 07-19-2024 End: 07-19-2024 ambulatory AVERY CAROLINA Not Available Start: 07-05-2024 End: 07-05-2024 ambulatory AVERY CAROLINA Not Available Start: 06-22-2024 End: 06-22-2024 ambulatory AVERY CAROLINA Not Available Start: 06-07-2024 End: 06-07-2024 ambulatory BRANDI SERRANO Not Available Start: 05-12-2024 End: 05-12-2024 ambulatory AVERY CAROLINA Not Available Start: 04-15-2024 End: 04-15-2024 ambulatory AVERY CAROLINA Not Available Start: 01-08-2024 End: 01-08-2024 ambulatory Madeline Urias ([facility]) Facility:[facility] Start: 01-08-2024 End: 01-08-2024 ambulatory [facility] Work Phone: [facility] Work Phone: Start: 01-08-2024 End: 01-08-2024 Patient encounter procedure [facility] Work Phone: [facility] Main [place] Work Phone: Procedures Date Procedure Procedure Detail Performing Clinician Start: 08-16-2024 Urnls dip stick/tabl et rgnt non-auto w/o micrscp Avery Carolina DO Work Phone: Start: 08-10-2024 Urnls dip stick/tabl et rgnt non-auto w/o micrscp Avery Carolina DO Work Phone: Start: 08-03-2024 Urnls dip stick/tabl et rgnt non-auto w/o micrscp Brandi DOTY Work Phone: Start: 01-08-2024 Diagnostic ultrasoun d of gravid uterus [facility] Work Phone: Plan of Treatment Date Care Activity Detail Author Start: 08-16-2024 End: 08-16-2024 Patient encounter procedure [facility] Comment on above: Arrived Start: 08-10-2024 End: 08-10-2024 Patient encounter procedure 08/10/2024 10:00 AM EDT Routine [facility] [address] [place] [address] Avery Figueroa DO [address] [address] [place], [place] [id number] [facility] Start: 08-03-2024 End: 08-03-2025 Strep B DNA probe, amplification Strep B DNA probe, amplification Lab Routine Third trimester Expected: 08/03/2024 (Approximate), Expires: 08/03/2025 [facility] Work Phone: Comment on above: Expected: 08/03/2024 (Approximate), Expires: 08/03/2025 Start: 08-03-2024 End: 08-03-2024 Patient encounter procedure 08/03/2024 11:10 AM EDT Routine [facility] [address] [facility] [place] [address] Brandi Serrano PA [address] [place], [place] [id number] Arrived [facility] Comment on above: Arrived Start: 06-27-2024 Influenza vaccination Influenza Vacc ine (#1) [facility] Immunizations Immunization Date Immunization Notes Care Provider Fa [facility] 08-13-2023 influenza virus vacc ine, unspecified formulation Brandi DOTY Work Phone: [facility] Payers Date Payer Category Payer Medicaid [id number] 2024 Medicaid [id number] 2024 Self-pay 2023 [facility] Memb er Subscriber Plan / Payer (Effective 2023-Present) Name: Casandra Dias Member ID: [id number] Relation to Subscriber: Child Name: SCOTTIE DIAS Subscriber ID: [id number] Date of : 1987 Address: [address] [place] [address] [place] [address] Payer ID: Not on file Type: Not on file Address: [address] [place] [address] [id number] 2023 Unknown BCBS BCBS [id number] 2023-Present [phone] [address] [place] [address] [id number] 2023 Unknown [id number] 2004 Unknown [id number]. 1258 2004 Unknown [id number]. 1258 2004 Unknown [id number] [id number]. 9 2004 Unknown [id number] [id number]. 1258 2004 Unknown [id number] [id number]. 9 2004 Unknown [id number] [id number]. 1258 2004 Unknown [id number] [id number]. 9 2004 Unknown [id number] [id number]. 1258 2004 Unknown [id number] [id number]. 1258 Unknown [id number]. 531 Social History Date Type Detail Facility Tobacco smoking stat [facility] Unknown if ever smoked [facility] Work Phone: Start: 2005 Sex Assigned At Female [facility] Tobacco smoking stat NHIS Tobacco smoking consumption unknown [facility] Start: 12-08-2023 [facility] Start: 03-16-2024 Gender identity Identifies as female gender (finding) [facility] Start: 03-16-2024 Sexual orientation Heterosexual (finding) [facility] History of Present illness Narrative 08-16-2024 Madeline Ibarra LPN - 08/16/2024 9:40 AM EDT Note Date & Type Note Facility 08-16-2024 History of Presen t illness Narrative Reason for Appointment: Patient ID: Casandra Dias is a 18 y.o. female who presents for Routine Visit Patient presents today for Return OB appointment. MEDICATIONS Current Outpatient Medications Medication Instructions iron polysaccharides (PROFE) 391.3 mg, Oral, Daily magnesium oxide (MAG-OX) 400 mg, Oral, Daily omeprazole (PRILOSEC) 20 mg, Oral, Daily before breakfast, Do not crush or chew. Prenat w/o R-LH-Pghiksv-FA-DHA (PNV-DHA) 27-0.6-0.4-300 MG capsule 1 capsule, Oral, Daily ALLERGIES No Known Allergies PROBLEMS Active Ambulatory Problems Diagnosis Date Noted No Active Ambulatory Problems Resolved Ambulatory Problems Diagnosis Date Noted No Resolved Ambulatory Problems No Additional Past Medical History HISTORY PAST MEDICAL HISTORY SOCIAL HISTORY History reviewed. No pertinent past medical history. Social History Tobacco Use Smoking status: Not on file Smokeless tobacco: Not on file Substance Use Topics Alcohol use: Not on file Drug use: Not on file FAMILY HISTORY No family history on file. SURGICAL HISTORY History reviewed. No pertinent surgical history. REVIEW OF SYSTEMS Review of Systems: Review of Systems All other systems reviewed and are negative. OBJECTIVE Objective: Physical Exam Constitutional: Appearance: Normal appearance. She is well-developed. Genitourinary: Vulva normal. Cardiovascular: Rate and Rhythm: Normal rate and regular rhythm. Pulmonary: Effort: Pulmonary effort is normal. Breath sounds: Normal breath sounds. Abdominal: General: Bowel sounds are normal. There is no distension. Palpations: Abdomen is soft. Tenderness: There is no abdominal tenderness. There is no guarding or rebound. Musculoskeletal: General: No swelling. Normal range of motion. Right lower leg: No edema. Left lower leg: No edema. Neurological: Mental Status: She is alert and oriented to person, place, and time. Skin: General: Skin is warm and dry. Psychiatric: Mood and Affect: Mood normal. Behavior: Behavior normal. Vitals and nursing note reviewed. Exam conducted with a project architect present. Vitals: Estimated body mass index is 18.76 kg/m as calculated from the following: Height as of 05/22/22: 5' 6.5 . Weight as of 05/22/22: 118 lb. BP: 104/66 Patient's last menstrual period was 11/24/2023. ASSESSMENT & PLAN ICD-10-CM 1. Third trimester Z34.93 Urine dip 2. 38 weeks gestation of Z3A.38 Urine dip Patient presents today for a routine obstetrics appointment. Patient is currently 38w0d with a Estimated Date of Delivery: 08/30/24. Patient is currently 2cm and 80% effaced and to return to clinic in 1 week for return OB appointment. Patient to think about IOL on 08/23/24--patient to sign consents prior to leaving if she decides to have IOL on 08/23/24. Documented by Madeline Ibarra LPN on behalf of: Avery Figueroa DO documented in this encounter [facility] History of Present illness Narrative 08-10-2024 Nikky Kirkpatrick LPN - 08/10/2024 10:00 AM EDT Note Date & Type Note Facility 08-10-2024 History of Presen t illness Narrative Reason for Appointment: Patient ID: Casandra Dias is a 18 y.o. female who presents for Routine Visit Patient presents today for Return OB appointment. MEDICATIONS Current Outpatient Medications Medication Instructions docusate sodium (COLACE) 100 mg, Oral, 2 times daily PRN iron polysaccharides (PROFE) 391.3 mg, Oral, Daily magnesium oxide (MAG-OX) 400 mg, Oral, Daily omeprazole (PRILOSEC) 20 mg, Oral, Daily before breakfast, Do not crush or chew. Prenat w/o E-CD-Ttmoumq-FA-DHA (PNV-DHA) 27-0.6-0.4-300 MG capsule 1 capsule, Oral, Daily ALLERGIES No Known Allergies PROBLEMS Active Ambulatory Problems Diagnosis Date Noted No Active Ambulatory Problems Resolved Ambulatory Problems Diagnosis Date Noted No Resolved Ambulatory Problems No Additional Past Medical History HISTORY PAST MEDICAL HISTORY SOCIAL HISTORY History reviewed. No pertinent past medical history. Social History Tobacco Use Smoking status: Not on file Smokeless tobacco: Not on file Substance Use Topics Alcohol use: Not on file Drug use: Not on file FAMILY HISTORY No family history on file. SURGICAL HISTORY History reviewed. No pertinent surgical history. REVIEW OF SYSTEMS Review of Systems: Review of Systems Constitutional: Negative. HENT: Negative. Eyes: Negative. Respiratory: Negative. Cardiovascular: Negative. Gastrointestinal: Negative. Genitourinary: Negative. Musculoskeletal: Negative. Skin: Negative. Neurological: Negative. All other systems reviewed and are negative. Hematological: Negative. Endocrine: Negative. Allergic/Immunologic: Negative. OBJECTIVE Objective: Physical Exam Constitutional: Appearance: Normal appearance. She is well-developed. Genitourinary: Vulva normal. Cardiovascular: Rate and Rhythm: Normal rate and regular rhythm. Pulmonary: Effort: Pulmonary effort is normal. Breath sounds: Normal breath sounds. Abdominal: General: Bowel sounds are normal. There is no distension. Palpations: Abdomen is soft. Tenderness: There is no abdominal tenderness. There is no guarding or rebound. Musculoskeletal: General: No swelling. Normal range of motion. Right lower leg: No edema. Left lower leg: No edema. Neurological: Mental Status: She is alert and oriented to person, place, and time. Skin: General: Skin is warm and dry. Psychiatric: Mood and Affect: Mood normal. Behavior: Behavior normal. Vitals and nursing note reviewed. Exam conducted with a project architect present. Vitals: Estimated body mass index is 18.76 kg/m as calculated from the following: Height as of 05/22/22: 5' 6.5 . Weight as of 05/22/22: 118 lb. BP: 116/62 Patient's last menstrual period was 11/24/2023. ASSESSMENT & PLAN ICD-10-CM 1. Third trimester Z34.93 POCT urinalysis dipstick manually resulted 2. 37 weeks gestation of Z3A.37 POCT urinalysis dipstick manually resulted Return OB: Patient presents today for a routine obstetrics appointment. Patient is currently 37w1d . Patient states she is doing well but has complaints of being tired due to current . Patient has verbalizes frequent movement. labor precautions was discussed/given and patient was instructed to perform kick counts three times a day. Pt has complaints of cramping and back pain- cervical check performed. Orders Placed This Encounter Procedures POCT urinalysis dipstick manually resulted Follow Up: Patient is to return to office in 1 week for routine OB appointment. Documented by Nikky Kirkpatrick LPN on behalf of: Brandi Serrano PA-C documented in this encounter [facility] History of Present illness Narrative 08-03-2024 SOREN Landaverde - 08/03/2024 11:10 AM EDT Note Date & Type Note Facility 08-03-2024 History of Presen t illness Narrative Reason for Appointment: Patient ID: Casandra Dias is a 18 y.o. female who presents for Routine Visit Patient presents today for Return OB appointment. MEDICATIONS Current Outpatient Medications Medication Instructions omeprazole (PRILOSEC) 20 mg, Oral, Daily before breakfast, Do not crush or chew. Prenat w/o S-YP-Miqccfq-FA-DHA (PNV-DHA) 27-0.6-0.4-300 MG capsule 1 capsule, Oral, Daily ALLERGIES No Known Allergies PROBLEMS Active Ambulatory Problems Diagnosis Date Noted No Active Ambulatory Problems Resolved Ambulatory Problems Diagnosis Date Noted No Resolved Ambulatory Problems No Additional Past Medical History HISTORY PAST MEDICAL HISTORY SOCIAL HISTORY History reviewed. No pertinent past medical history. Social History Tobacco Use Smoking status: Not on file Smokeless tobacco: Not on file Substance Use Topics Alcohol use: Not on file Drug use: Not on file FAMILY HISTORY No family history on file. SURGICAL HISTORY History reviewed. No pertinent surgical history. REVIEW OF SYSTEMS Review of Systems: Review of Systems Constitutional: Negative. HENT: Negative. Eyes: Negative. Respiratory: Negative. Cardiovascular: Negative. Gastrointestinal: Negative. Genitourinary: Negative. Musculoskeletal: Negative. Skin: Negative. Neurological: Negative. All other systems reviewed and are negative. Hematological: Negative. Endocrine: Negative. Allergic/Immunologic: Negative. OBJECTIVE Objective: Physical Exam Constitutional: Appearance: Normal appearance. She is well-developed and normal weight. HENT: Head: Normocephalic. Cardiovascular: Rate and Rhythm: Normal rate and regular rhythm. Pulses: Normal pulses. Pulmonary: Effort: Pulmonary effort is normal. Breath sounds: Normal breath sounds. Abdominal: General: Bowel sounds are normal. There is no distension. Palpations: Abdomen is soft. Tenderness: There is no abdominal tenderness. There is no guarding or rebound. Musculoskeletal: General: No swelling. Normal range of motion. Right lower leg: No edema. Left lower leg: No edema. Neurological: General: No focal deficit present. Mental Status: She is alert and oriented to person, place, and time. Skin: General: Skin is warm and dry. Psychiatric: Mood and Affect: Mood normal. Behavior: Behavior normal. Thought Content: Thought content normal. Judgment: Judgment normal. Vitals and nursing note reviewed. Exam conducted with a project architect present. Vitals: Estimated body mass index is 18.76 kg/m as calculated from the following: Height as of 05/22/22: 5' 6.5 . Weight as of 05/22/22: 118 lb. BP: 120/70 Patient's last menstrual period was 11/24/2023. ASSESSMENT & PLAN ICD-10-CM 1. 36 weeks gestation of Z3A.36 POCT urinalysis dipstick manually resulted 2. Third trimester Z34.93 POCT urinalysis dipstick manually resulted Strep B DNA probe, amplification Return OB: Patient is doing well but has complaints of being tired and having maternal discomfort due to . Patient verbalized frequent movement and was instructed to perform kick counts three times per day. labor precautions were given, LARC consent was signed/declined, and GBS was obtained. Orders Placed This Encounter Procedures Strep B DNA probe, amplification POCT urinalysis dipstick manually resulted Follow Up: Patient is to return to office in 1 week for routine OB appointment Orders Placed This Encounter Procedures Strep B DNA probe, amplification POCT urinalysis dipstick manually resulted Follow Up: Patient is to return to office in 2 week for routine OB appointment. Documented by Heaven Paul LPN on behalf of: SOREN Landaverde documented in this encounter [facility] Evaluation note Note Date & Type Note [facility] Evaluation note Note Date & Type Note Facility Evaluation note Diagnosis 36 weeks gestation of Third trimester state, incidental Low iron Unspecified iron deficiency anemia Constipation, unspecified constipation type documented in this encounter [facility] Evaluation note Note Date & Type Note Facility Evaluation note Diagnosis Third trimester state, incidental 37 weeks gestation of documented in this encounter [facility] Evaluation note Note Date & Type Note Facility Evaluation note Diagnosis Third trimester state, incidental 38 weeks gestation of documented in this encounter [facility] Chief Complaint and Reason for Visit Chief Complaint Z3A.01 Advance Directives No Advanced Directives Records Found Advance Directive Response Recorded Date/ Time Advance Directives No January 07 11:22am Summary Purpose Family History No Family History Records FoundNo Family History Records Found Additional Source Comments Care Teams (unrecognized sec tion and content) Team Status: Active Member Role Status Dates [facility] Primary [facility] Active Team Status: Inactive Member Role Status Dates Madeline Urias ([facility]) , PASSPORT SUPPORT ASSOCIATE Attending Provider Active Start: January 08, 2024 End: January 08, 2024 [facility] Primary [facility] Provider Active Start: January 08, 2024 End: January 08, 2024 Pants Maker Relationship Specialty Start Date End Date Dustin Lanza DO [address] [address] PCP - General Family Medicine 03/04/23 Pants Maker Relationship Specialty Start Date End Date Dustin Lanza DO [address] [place] [address] PCP - General Family Medicine 03/04/23 Pants Maker Relationship Specialty Start Date End Date Dustin Lanza DO [address] [place] [address] PCP - General Family Medicine 03/04/23 Pants Maker Relationship Specialty Start Date End Date Dustin Lanza DO [address] [place] [address] PCP - General Family Medicine 03/04/23 Pants Maker Relationship Specialty Start Date End Date Dustin Lanza DO [address] [place] [address] PCP - General Family Medicine 03/04/23 Pants Maker Relationship Specialty Start Date End Date Dustin Lanza DO [address] [place] [address] PCP - General Family Medicine 03/04/23 Goals (unrecognized section and content) Goals may be documented in a n alternate section INFORMATION SOURCE (unrecogn ized section and content) DATE CREATED AUTHOR 03/18/2024 [facility] ysician Group DATE CREATED AUTHOR 'S ORGANIZ ATION 08/17/2024 [facility] dical Specialists EPIC Reason for Visit (unrecogniz ed section and content) Reason Comments Routine Visit FOR RECORDS PERTAINING TO PATIENTS WHO ARE [...] BE BASED ON THE PRIMARY CLINICAL RECORDS. [employer] provides no warranty or guarantee of the accuracy or completeness of information in this document.
[2024-08-19 12:17] VITALS: BP 122/67; PULSE 98
[2024-08-19 12:31] LABS: Bilirubin Urine NEGATIVE (NEGATIVE); Blood Urine NEGATIVE (NEGATIVE); Clarity Urine CLEAR (CLEAR); Color Urine LT. YELLOW (YELLOW); Glucose Urine UA NEGATIVE (NEGATIVE); Ketones Urine TRACE mg/dL (NEGATIVE); Leukocyte Esterase Urine SMALL (NEGATIVE); Nitrite Urine NEGATIVE (NEGATIVE); Protein Urine NEGATIVE (NEG/TRACE); pH Urine 6.5 (5.0-9.0)
[2024-08-19 12:32] LABS: Urine Microscopic Indicated YES
[2024-08-19 12:40] LABS: Bacteria Urine TRACE #/HPF (NONE SEEN); Cast Seen? NONE SEEN #/LPF (NONE SEEN); Crystals Seen? None Seen #/HPF (None Seen); Mucus Urine TRACE (NONE SEEN); RBC Urine 0-2 #/HPF (0-2); Squamous Epithelial Cell Urine MODERATE #/LPF (NONE/RARE); Urine Culture Indicated YES
== END 2024-08-19 14:45 | disposition home or self-care (01) ==
LOC: FBC 12:01
PROVIDERS: Admitting Provider Obstetrics & Gynecology; Visit Provider Obstetrics & Gynecology
DX: O26.899 Other specified pregnancy related conditions, unspecified trimester (principal); R10.2 Pelvic and perineal pain; Z3A.00 Weeks of gestation of pregnancy not specified
CPT/HCPCS: 59025; 81001; 87086; G0378; G0379

== ENCOUNTER 2024-08-23 04:47 | Inpatient (IN) | payer BC, OTHER, SELFPAY ==
[2024-08-23] VITALS (72 sets, daily range): BP systolic 96–151; BP diastolic 50–97; PULSE 62–102; TEMP 36.6–37.1
--- OUTSIDE RECORDS SUMMARY | 2024-08-23 04:50 | XMS_ITS | CCD ---
Author Organization [facility] Care Team Providers Care Marine Fireman Name Role Phone Adonay ([facility]), ALVARADO Cameron Attending Provider Health Dept, Jerry [facility] Primary Care Provider Adonay ([facility]), Madeline Cameron Attending Unavailabl e Adonay ([facility]), Madeline Cameron Admitting Unavailabl e Health Dept, [...] Active magnesium oxide 400 mg oral tablet (7 sources) Start: 08-03-2024 End: 09-02-2024 take 1 tablet by mouth once daily magnesium oxide (Mag-Ox) 400 MG tablet Indications: Nonintractable headache, unspecified chronicity pattern, unspecified headache type Take 1 tablet (400 mg) by mouth Daily 30 tablet 6 08/03/2024 09/02/2024 Active omeprazole 20 mg delayed release oral capsule (10 sources) Proton Pump Inhibitor Start: 07-05-2024 End: 10-03-2024 take 1 capsule by mouth before mealtime omeprazole (PriLOSEC) [address] capsule Indications: Gastroesophageal Reflux Disease , Heartburn Take 1 capsule (20 mg) by mouth in the morning. Take before meals. Do not crush or chew.. 30 capsule 2 07/05/2024 10/03/2024 Active polysaccharide iron complex 391 mg oral capsule (9 sources) Start: 08-03-2024 End: 09-02-2024 take 1 capsule by mouth once daily iron polysaccharides (ProFe) 391.3 (180 Fe) MG capsule Indications: Low iron Take 1 capsule (391.3 mg) by mouth Daily 30 capsule 2 08/03/2024 09/02/2024 Active Prenat w/o C-FC-Wsodeau-FA-DHA (PNV-DHA) 27-0.6-0.4-300 MG capsule (10 sources) Start: 12-31-2023 take 1 capsule by mouth once daily Prenat w/o Q-JY-Ttqmyjp-FA-DHA (PNV-DHA) 27-0.6-0.4-300 MG capsule Take 1 capsule [...] Name Value Interpretation Reference Range Facil ity [facility] UA (CLEAN/CATCH) BINDERY MACHINE FEEDER OFFBEARER/HERO RO IF IND.on 08-19-2024 BILIRUBIN URINE Negative NEGATIVE [facility] BLOOD URINE Negative NEGATIVE [facility] Clarity (U) CLEAR CLEAR [facility] Color (U) LT. YELLOW YELLOW [facility] GLUCOSE URINE UA Negative NEGATIVE mg/dL [facility] Interpretation and review of laboratory results Abnormal [facility] Ketones Ql (U) TRACE Abnormal NEGATIVE mg/dL [facility] Leukocyte esterase Test strip Ql (U) SMALL Abnormal NEGATIVE [facility] NITRITE URINE Negative NEGATIVE [facility] Health care pH (U) 6.5 [pH] 5.0 - 9.0 [facility] PROTEIN URINE Negative NEG/TRACE mg/dL [facility] SPECIFIC GRAVITY URINE 1.020 1.005 - 1.025 [facility] URINE MICROSCOPIC INDICATED YES [facility] UROBILINOGEN URINE 1.0 EU/dL 0.2 - 1.0 EU/dL N [facility] Urinalysis macro (dipstick) panel (U)on 08-16-2024 Bilirubin, UA Negative Negative - 4(70) +++ mg/dL [facility] Blood, UA Negative Negative - 50 Jona/mcL [facility] Healthcare Clarity, UA Clear [facility] Color, UA Yellow [facility] Glucose, UA Negative Negative - 1999(110) ++++ mg/dL [facility] Interpretation and review of laboratory results Normal [facility] Ketones, UA Negative Negative - 160(16) ++++ mg/dL [facility] Leukocytes, UA Negative Negative - 500+++ Diane/mcL [facility] Nitrite, UA Negative Negative - Positive [facility] pH, UA 7 5 - 9 [facility] Protein, UA Negative Negative - 1999(20) ++++ mg/dL [facility] Spec Grav, UA 1.015 1 - 1.03 [facility] Urobilinogen, UA 1.0 0.2 - 12 [facility]/dL [facility] Urinalysis macro (dipstick) panel (U)on 08-10-2024 Bilirubin, UA Negative Negative - 4(70) +++ mg/dL [facility] Blood, UA Negative Negative - 50 Jona/mcL [facility] Clarity, UA Clear [facility] Color, UA Yellow [facility] Glucose, UA Negative Negative - 1999(110) ++++ mg/dL [facility] Interpretation and review of laboratory results Abnormal [facility] Ketones, UA Negative Negative - 160(16) ++++ mg/dL [facility] Leukocytes, UA Positive Negative - 500+++ Diane/mcL [facility] Comment on above: small Nitrite, UA Negative Negative - Positive [facility] pH, UA 7 5 - 9 [facility] Protein, UA Negative Negative - 1999(20) ++++ mg/dL [facility] Spec Grav, UA 1.025 1 - 1.03 [facility] Urobilinogen, UA 1.0 0.2 - 12 mg/dL [facility] Urinalysis macro (dipstick) panel (U)on 08-03-2024 Bilirubin, UA Negative Negative - 4(70) +++ mg/dL [facility] Blood, UA Negative Negative - 50 Jona/mcL [facility] Clarity, UA Clear [facility] Color, UA Yellow [facility] Glucose, UA Negative Negative - 1999(110) ++++ mg/dL [facility] Interpretation and review of laboratory results Abnormal [facility] Ketones, UA Negative Negative - 160(16) ++++ mg/dL [facility] Leukocytes, UA Trace Negative - 500+++ Diane/mcL [facility] Nitrite, UA Negative Negative - Positive [facility] pH, UA 5.5 5 - 9 [facility] Protein, UA Negative Negative - 1999(20) ++++ mg/dL [facility] Spec Grav, UA 1.015 1 - 1.03 [facility] Urobilinogen, UA 1.0 0.2 - 12 mg/dL [facility] US OB >= 14 weeks Fetuson US OB >= 14 weeks Fetus [facility] [place] [address] Ultrasound Report Signed Patient: Casandra Dias MR#: [id number] : 2005 Acct:[id number] Age/Sex: 18 / F ADM Date: 01/08/24 Loc: Room: Type: [facility] Attending Dr: Madeline Urias ([facility]) ALVARADO Ordering Provider: Madeline Urias APRN, [facility] Date of Service: 01/08/24 US/US OB >= 14 weeks Fetus: Z3A.01 Copies to: Madeline ALVARADO Urias, [facility] US OB >= 14 weeks Fetus 01/08/2024 [...] Henri Mario M.D.01/08/2024 4:22 PM Dictation Location: [place] [address] Tech: Barbaraanam Faulknerer Transcribed By: TYLER 01/08/24 1622 Dictated By: Henri Mario II, MD 01/08/24 1617 Signed By: 01/08/24 1622 Normal [facility] Vital Signs Date Time Vital Sign Value Performing Clinician Amado madison 08-16-2024 10:0400 Body weight 72.3 kg Avery Carolina DO Work Phone: [facility] 08-16-2024 10:01-0400 Diastolic blood pressure 66 mm[Hg] Avery Carolina DO Work Phone: [facility] 08-16-2024 10:01-0400 Systolic blood pressure 104 mm[Hg] Avery Carolina DO Work Phone: [facility] 08-10-2024 10:34-0400 Body weight 71.89 kg Avery Carolina DO Work Phone: [facility] 08-10-2024 10:34-0400 Diastolic blood pressure 62 mm[Hg] Avery Carolina DO Work Phone: [facility] 08-10-2024 10:34-0400 Systolic blood pressure 116 mm[Hg] Avery Carolina DO Work Phone: [facility] 08-03-2024 11:16-0400 Body weight 72.63 kg Brandi DOTY Work Phone: [facility] Healthcare 08-03-2024 11:16-0400 Diastolic blood pressure 70 mm[Hg] Brandi DOTY Work Phone: [facility] Healthcare 08-03-2024 11:16-0400 Systolic blood pressure 120 mm[Hg] Brandi DOTY Work Phone: [facility] Healthcare Encounters Encounter Date Encounter Type Care Provider Facility Start: 08-19-2024 End: 08-19-2024 Clinisync Result Encounter Avery Carolina DO Work Phone: [facility] External Department Unsolicited Start: 08-19-2024 End: 08-19-2024 Clinisync Result Encounter Avery Carolina DO Work Phone: [facility] External Department Unsolicited Start: 08-16-2024 End: 08-16-2024 Bamboo flowsheet Avery Carolina DO Work Phone: [facility] B[facility] OB Start: 08-16-2024 End: 08-16-2024 Bamboo flowsheet Avery Carolina DO Work Phone: [facility] Start: 08-16-2024 End: 08-16-2024 flow sheet Avery Carolina DO Work Phone: [facility] OB Comment on above: Third trimester preg jayden; 38 weeks gestation of Start: 08-16-2024 End: 08-16-2024 ambulatory AVERY CAROLINA Not Available Start: 08-10-2024 End: 08-10-2024 Bamboo flowsheet Avery Carolina DO Work Phone: [facility] Start: 08-10-2024 End: 08-10-2024 Bamboo flowsheet Avery Carolina DO Work Phone: [facility] Start: 08-10-2024 End: 08-10-2024 ambulatory AVERY CAROLINA Not Available Start: 08-10-2024 End: 08-10-2024 flow sheet Avery Carolina DO Work Phone: [facility] Comment on above: Third trimester preg jayden; 37 weeks gestation of Start: 08-03-2024 End: 08-03-2024 Bamboo flowsheet Brandi DOTY Work Phone: [facility] OB Start: 08-03-2024 End: 08-03-2024 Bamboo flowsheet Brandi DOTY Work Phone: [facility] Start: 08-03-2024 End: 08-03-2024 flow sheet Brandi DOTY Work Phone: [facility] Comment on above: 36 weeks gestation o f ; Third trimester ; Low iron; Constipation, unspecified constipation type Start: 08-03-2024 End: 08-03-2024 ambulatory BRANDI MAGGIE Not Available Start: 07-19-2024 End: 07-19-2024 ambulatory AVERY CAROLINA Not Available Start: 07-05-2024 End: 07-05-2024 ambulatory AVERY CAROLINA Not Available Start: 06-22-2024 End: 06-22-2024 ambulatory AVERY CAROLINA Not Available Start: 06-07-2024 End: 06-07-2024 ambulatory BRANDI MAGGIE Not Available Start: 05-12-2024 End: 05-12-2024 ambulatory AVERY CAROLINA Not Available Start: 04-15-2024 End: 04-15-2024 ambulatory AVERY CAROLINA Not Available Start: 01-08-2024 End: 01-08-2024 ambulatory Madeline Urias ([facility]) Facility:[facility] Start: 01-08-2024 End: 01-08-2024 ambulatory Apiary [facility] Work Phone: [facility] Work Phone: Start: 01-08-2024 End: 01-08-2024 Patient encounter procedure [facility] Work Phone: [facility] [place] Work Phone: Procedures Date Procedure Procedure Detail Performing Clinician Start: 08-19-2024 [facility] UA (CLEAN/CATCH) BINDERY MACHINE FEEDER OFFBEARER/MICRO IF IND. Avery Carolina DO Work Phone: Start: 08-16-2024 Urnls dip stick/tabl et rgnt non-auto w/o micrscp Avery Carolina DO Work Phone: Start: 08-10-2024 Urnls dip stick/tabl et rgnt non-auto w/o micrscp Avery Carolina DO Work Phone: Start: 08-03-2024 Urnls dip stick/tabl et rgnt non-auto w/o micrscp Brandi DOTY Work Phone: Start: 01-08-2024 Diagnostic ultrasoun d of gravid uterus [facility] Dept Work Phone: Plan of Treatment Date Care Activity Detail Author Start: 08-23-2024 Chart abstracting 08/23/2024 A bstract [facility] [address] [place] [id number] Avery Figueroa, DO [address] [place] [address] [facility] Start: 08-16-2024 End: 08-16-2024 Patient encounter procedure [facility] Comment on above: Arrived Start: 08-10-2024 End: 08-10-2024 Patient encounter procedure 08/10/2024 10:00 AM EDT Routine [facility] [address] [place] [id number] Avery Figueroa, DO [address] [place] [address] [facility] Start: 08-03-2024 End: 08-03-2025 Strep B DNA probe, amplification Strep B DNA probe, amplification Lab Routine Third trimester Expected: 08/03/2024 (Approximate), Expires: 08/03/2025 [facility] Work Phone: Comment on above: Expected: 08/03/2024 (Approximate), Expires: 08/03/2025 Start: 08-03-2024 End: 08-03-2024 Patient encounter procedure 08/03/2024 11:10 AM EDT Routine [facility] [address] [place] [phone] Brandi Vasquez PA [address] [place] [address] Arrived [facility] Comment on above: Arrived Start: 06-27-2024 Influenza vaccination Influenza Vacc ine (#1) [facility] Immunizations Immunization Date Immunization Notes Care Provider Fa cility 08-13-2023 influenza virus vacc ine, unspecified formulation Brandi DOTY Work Phone: [facility] Payers Date Payer Category Payer Medicaid [id number] 2024 Medicaid [id number] 2024 Self-pay 2023 [facility] BCBS [id number] 2023 Unknown BCBS BCBS [id number] [id number] 2023-Present [phone] [address] [place] [address] [id number] 2023 Unknown [id number] 2004 Unknown [id number]. 1259 2004 Unknown [id number] [id number]. 9 2004 Unknown [id number] [id number]. 9 2004 Unknown [id number] [id number]. 9 2004 Unknown [id number] [id number]. 1259 2004 Unknown [id number] [id number]. 9 2004 Unknown [id number] 2.16.840.1.151564.3.579.2. 9 2004 Unknown [id number] [id number]. 9 2004 Unknown [id number] [id number]. 1259 Unknown [id number]. 531 Social History Date Type Detail Facility Tobacco smoking stat [facility] Unknown if ever smoked [facility] Work Phone: Start: 2005 Sex Assigned At Female [facility] Tobacco smoking stat [facility] Tobacco smoking consumption unknown [facility] Start: 12-08-2023 [facility] Start: 03-16-2024 Gender identity Identifies as female gender (finding) [facility] Start: 03-16-2024 Sexual orientation Heterosexual (finding) [facility] History of Present illness Narrative [...] Do not crush or chew. Prenat w/o H-SK-Nxvvyeo-FA-DHA (PNV-DHA) 27-0.6-0.4-300 MG capsule 1 capsule, Oral, [...] nursing note reviewed. Exam conducted with a business line controller present. Vitals: Estimated body mass index is [...] Avery Figueroa DO documented in this encounter [facility] Healthcare History of Present illness Narrative 08-10-2024 [...] Do not crush or chew. Prenat w/o U-GP-Nyfckbs-FA-DHA (PNV-DHA) 27-0.6-0.4-300 MG capsule 1 capsule, Oral, [...] nursing note reviewed. Exam conducted with a business line controller present. Vitals: Estimated body mass index is [...] Nikky Kirkpatrick LPN on behalf of: Brandi Vasquez PA-C documented in this encounter [facility] [...] Do not crush or chew. Prenat w/o K-BL-Dfcyzia-FA-DHA (PNV-DHA) 27-0.6-0.4-300 MG capsule 1 capsule, Oral, [...] nursing note reviewed. Exam conducted with a business line controller present. Vitals: Estimated body mass index is [...] of: SOREN Landaverde documented in this encounter [facility] Evaluation note Note Date & Type Note Facility Evaluation note No assessment [facility] Work Phone: Evaluation note Note Date [...] for Visit Chief Complaint Z3A.01 Advance Directives Advance Directive Response Recorded Date/ Time Advance Directives No January 07 11:22am Summary Purpose Family History No Family History Records FoundNo Family History Records Found Additional Source Comments Care Teams (unrecognized sec tion and content) Team Status: Active Member Role Status Dates [facility] Primary Care Provider Active Team Status: Inactive Member Role Status Dates Madeline Urias ([facility]) , CUSTOMER PROGRAM SPECIALIST Attending Provider Active Start: January 08, 2024 End: January 08, 2024 [facility] Primary Care Provider Active Start: January 08, 2024 End: January 08, 2024 Marine Fireman Relationship Specialty Start Date End Date Dustin Lanza DO [address] [place] [address] PCP - General Family Medicine 03/04/23 Marine Fireman Relationship Specialty Start Date End Date Dustin Lanza DO [address] [place] [address] PCP - General Family Medicine 03/04/23 Marine Fireman Relationship Specialty Start Date End Date Dustin Lanza DO [address] [place] [address] PCP - General Family Medicine 03/04/23 Marine Fireman Relationship Specialty Start Date End Date Dustin Lanza DO [address] [place] [address] PCP - General Family Medicine 03/04/23 Marine Fireman Relationship Specialty Start Date End Date Dustin Lanza DO [address] [place] [address] PCP - General Family Medicine 03/04/23 Marine Fireman Relationship Specialty Start Date End Date Dustin Lanza DO [address] [place] [address] PCP - General Family Medicine 03/04/23 Goals (unrecognized section and content) Goals may be documented in a n alternate section INFORMATION SOURCE (unrecogn ized section and content) DATE CREATED AUTHOR 03/18/2024 [facility] ysician Group DATE CREATED AUTHOR 'S CHAKA ATION 08/17/2024 [facility] EPIC Reason for Visit (unrecogniz [...] BE BASED ON THE PRIMARY CLINICAL RECORDS. [facility] [employer] provides no warranty or guarantee of the accuracy or completeness of information in this document.
[2024-08-23 05:44] LABS: Hematocrit 34.6 % (36.0-48.0); Hemoglobin 10.5 g/dL (12.0-16.0); Mean Corpuscular HGB Conc 30.3 g/dL (29.9-35.2); Mean Corpuscular Hemoglobin 26.4 pg (26.7-34.0); Mean Corpuscular Volume 86.9 fL (81.0-99.0); Mean Platelet Volume 9.8 fL (9.5-13.5); Platelet Count 335 10^3/uL (150-450); Red Blood Count 3.98 10^6/uL (4.20-5.40); Red Cell Distribution Width 26.4 % (11.0-15.0); White Blood Count 10.2 10^3/uL (4.0-11.0)
[2024-08-23 05:55] LABS: Amphetamine Screen Urine NEGATIVE (NEGATIVE); Barbiturates Screen Urine NEGATIVE (NEGATIVE); Benzodiazepines Screen Urine NEGATIVE (NEGATIVE); Buprenorphine Screen Urine NEGATIVE (NEGATIVE); Cannabinoid Screen Urine NEGATIVE (NEGATIVE); Cocaine Screen Urine NEGATIVE (NEGATIVE); Methadone Screen Urine NEGATIVE (NEGATIVE); Methamphetamines Screen Urine NEGATIVE (NEGATIVE); Opiate Screen Urine NEGATIVE (NEGATIVE); Oxycodone Screen Urine NEGATIVE (NEGATIVE); Phencyclidine Screen Urine NEGATIVE (NEGATIVE); Tricyclic Antidepressant Urine NEGATIVE (NEGATIVE)
[2024-08-23] MEDS: 0.9 % SODIUM CHLORIDE 1,000 ML 125 ML IV ×3 (06:01→14:20)
[2024-08-23] MEDS: OXYTOCIN/0.9 % SODIUM CHLORIDE 10 UNITS/500 ML PLAST..BAG 6 UNIT IV (06:02)
[2024-08-23] MEDS: ONDANSETRON PF 4 MG/2 ML VIAL IV (10:05)
[2024-08-23] MEDS: ROPIVACAINE HCL/PF 400 MG/200 ML PREMIX 6 MG EPIDURAL (11:01)
[2024-08-23] MEDS: OXYTOCIN/0.9 % SODIUM CHLORIDE 20 UNITS/1,000 ML PLAST..BAG 125 UNIT IV (17:34)
[2024-08-23] MEDS: LIDOCAINE HCL 1% 200 MG/20 ML MDV INJ (17:44)
--- NOTE | 2024-08-23 17:47 | PM.OBPRCVD ---
Procedure Intrapartal events: None Induction method: per pitocin protocol Delivery augmentation: rupture of membranes and pitocin Delivery monitor: external FHT and external uterine Route of delivery: Episiotomy Description: none L&D Laceration Description: perineal - 2nd degree Delivery repair: Vicryl Estimated blood loss (mL): 250 Anesthesia type: Epidural Disposition: floor Infant Delivery date: 08/23/24 Gender: female presentation: vertex Placental delivery description: Spontaneous cord description: 3 Vessels
[2024-08-23] MEDS: IBUPROFEN 600 MG TABLET PO (18:11)
[2024-08-23] MEDS: ACETAMINOPHEN 325 MG TABLET 650 MG PO (18:12)
[2024-08-23] MEDS: BENZOCAINE/MENTHOL 85 GRAM SPRAY BOTTLE 1 APPLIC TOPICAL (18:12)
[2024-08-23] MEDS: GLYCERIN/WITCH HAZEL PADS 1 PAD TOPICAL (18:12)
[2024-08-23] MEDS: HYDROCODONE/ACET 5-325 MG TABLET 1 TAB PO (22:38)
[2024-08-24 00:15] VITALS: TEMP 36.6
[2024-08-24] MEDS: IBUPROFEN 600 MG TABLET PO ×4 (00:17→23:23)
[2024-08-24 00:22] VITALS: BP 123/63; PULSE 83
[2024-08-24] MEDS: DOCUSATE SODIUM 100 MG CAPSULE PO ×2 (00:25→09:19)
[2024-08-24] MEDS: HYDROCODONE/ACET 5-325 MG TABLET 1 TAB PO ×3 (05:37→19:40)
[2024-08-24 07:09] LABS: Basophils Absolute Auto 0.1 10^3/uL (0.0-0.1); Basophils Percent Auto 0.5 % (0.2-2.0); Eosinophils Absolute Auto 0.1 10^3/uL (0.0-0.7); Hematocrit 29.7 % (36.0-48.0); Hemoglobin 9.1 g/dL (12.0-16.0); Immature Granulocytes Abs Auto 0.06 10^3/uL (0.00-0.03); Immature Granulocytes Pct Auto 0.5 % (0.0-0.5); Lymphocytes Absolute Auto 2.7 10^3/uL (1.2-3.8); Lymphocytes Percent Auto 21.6 % (20.5-60.0); Mean Corpuscular HGB Conc 30.6 g/dL (29.9-35.2); Mean Corpuscular Hemoglobin 26.7 pg (26.7-34.0); Mean Corpuscular Volume 87.1 fL (81.0-99.0); Mean Platelet Volume 9.5 fL (9.5-13.5); Monocytes Absolute Auto 0.9 10^3/uL (0.3-0.8); Monocytes Percent Auto 7.4 % (1.7-12.0); Neutrophils Absolute Auto 8.7 10^3/uL (1.4-6.5); Platelet Count 257 10^3/uL (150-450); Red Cell Distribution Width 25.9 % (11.0-15.0); White Blood Count 12.6 10^3/uL (4.0-11.0)
[2024-08-24 07:28] LABS: Red Blood Count 3.41 10^6/uL (4.20-5.40)
[2024-08-24 08:29] VITALS: BP 115/68; PULSE 74
[2024-08-24 08:58] VITALS: TEMP 36.7
--- NOTE | 2024-08-24 09:01 | PC.NURSE ---
discussed pumping and feeding, pt voices would like to bottle feed and pump and feed also, hand pump to room with instructions on same. perineum with ecchymosis but swelling improved, to/anterior area of labia blanched, wearing ice pack for comfort
--- NOTE | 2024-08-24 09:57 | PC.NURSE ---
hand pumped 20 ml colostrum, medicated for cramping, given teaching folder with instructions and teaching videos
--- NOTE | 2024-08-24 11:15 | PM.OBPN ---
OB - PN: Subj Subjective Patient comments: pain well controlled (perineal repair ), tolerating diet and flatus present status: doing well feeding status: expressed and bottle feeding (also using formula) Exam Constitutional Vital Signs, click to edit/add: Last Vital Signs Temp 98.1 F 08/24/24 08:58 Pulse 74 08/24/24 08:29 Resp 14 08/24/24 08:58 BP 115/68 08/24/24 08:29 O2 Del Method Room Air 08/24/24 00:15 Documenting provider has reviewed patient's vital signs: yes Common normals: no apparent distress, average body habitus, oriented x3, healthy appearing, alert and well nourished General appearance: cooperative Orientation/consciousness: Yes awake, Yes oriented to person, Yes oriented to place and Yes oriented to time HENMT Common normals: normocephalic Head and scalp: atraumatic Eye Common normals: PERRL Pupil: accommodation reflex normal Neck & C-Spine Common normals: full ROM and supple Respiratory Common normals: normal respiratory effort Auscultation: clear to auscultation bilaterally Cardio Common normals: regular rate and regular rhythm GI Common normals: Normal to inspection, nondistended, normoactive bowel sounds present, soft to palpation and non-tender Common normals: no CVA tenderness Back & Pelvis Common normals: no thoracic nor lumbar tenderness Extremity Common normals: normal to inspection, full ROM and no calf tenderness Neuro Common normals: CN's II-XII intact bilaterally, moves all extremities, no focal motor deficits and no sensory deficits noted Sensorium/orientation: awake, alert, oriented to person, oriented to place and oriented to time Psych Common normals: mental status grossly normal, thought process normal, cooperative and affect normal Results Labs Labs: Short CBC 08/24/24 Range/Units 07:02 WBC 12.6 H (4.0-11.0) 10^3/uL Hgb 9.1 L (12.0-16.0) g/dL Hct 29.7 L (36.0-48.0) % Plt Count 257 (150-450) 10^3/uL OB - PN: A/P Assessment and Plan (1) (spontaneous vaginal delivery): Assessment and Plan: pumping and bottle feeding and using formula. vss, afebrile, perineal discomfort from lac repair, ambulating and eating and voiding normally Plan routine care Plan - Vaginal Delivery day: 1 Time Spent with Patient Time: Total time spent is greater than 50% in coordination of care (as documented) at patient's floor/unit and/or counseling patient: Total time spent with greater than 50% in coordination of care (as documented) at patient's floor/unit and/or counseling patient: less than 15 minutes
[2024-08-24] MEDS: IRON PS COMPLEX/B12/FOLIC ACID CAPSULE 1 CAP PO (12:40)
--- NOTE | 2024-08-24 13:14 | PC.NURSE ---
ice pack given, medicated with vicodin stating pain goes away with this med and motrin just takes the edge off
[2024-08-24 17:11] VITALS: BP 107/58; PULSE 82
[2024-08-24] MEDS: GLYCERIN/WITCH HAZEL PADS 1 PAD TOPICAL (17:28)
[2024-08-25] MEDS: HYDROCODONE/ACET 5-325 MG TABLET 1 TAB PO ×2 (00:25→08:12)
[2024-08-25 00:38] VITALS: BP 113/77; PULSE 82
[2024-08-25 00:39] VITALS: TEMP 36.1
--- NOTE | 2024-08-25 05:41 | P.DS_ITS ---
DS: Providers Provider Date of admission: 08/23/24 04:47 Primary care physician: Non-Staff Physician, Admitting clinician: Wolfgang Figueroa Consults: 08/23/24 Consult to Anesthesiology Routine Consulting Provider: Domingo Tom II Reason for consultation: epidural Has provider been notified: No Attending physician on discharge: Akiko Thompson DS: Diagnosis Discharge Diagnosis (1) (spontaneous vaginal delivery): Assessment and plan: s/p vaginal delivery, perineal repair for second degree lac, vss, afebrile, appropriate for discharge Plan discharge home OB - DS: Summary Hospital Course Hospital Course: uncomplicated Time spent discussing smoking cessation with patient: 3 to 10 minutes Peripartum Data - Vaginal Delivery Laceration description: periurethral - 2nd degree Complications complications: none Infant Delivery method: spontaneous vaginal delivery Gender: female Discharge plan: home Status at Discharge Cognitive/behavioral status at discharge: wnl Functional status at discharge: independent ambulation Time Spent with Patient Time attestation: Total time spent providing and/or coordinating discharge services: Time spent: less than 30 minutes Exam Constitutional Vital Signs, click to edit/add: Last Vital Signs Temp 97.0 F L 08/25/24 00:39 Pulse 82 08/25/24 00:38 Resp 14 08/25/24 00:39 BP 113/77 08/25/24 00:38 O2 Del Method Room Air 08/24/24 00:15 Documenting provider has reviewed patient's vital signs: yes Common normals: no apparent distress HENMT Common normals: normocephalic and head/scalp atraumatic Eye Common normals: PERRL Neck & C-Spine Common normals: full ROM Respiratory Common normals: normal respiratory effort Auscultation: clear to auscultation bilaterally Cardio Common normals: regular rate and regular rhythm GI Common normals: Normal to inspection, nondistended, normoactive bowel sounds present Common normals: no CVA tenderness Back & Pelvis Common normals: no thoracic nor lumbar tenderness Extremity Common normals: normal to inspection, full ROM and no calf tenderness Neuro Common normals: oriented x3, CN's II-XII intact bilaterally, moves all extremities, no focal motor deficits and no sensory deficits noted Psych Common normals: mental status grossly normal DS: Data Data Completed and Pending Labs on day of discharge: Labs from last 24 hours 08/24/24 07:02 WBC 12.6 H RBC 3.41 L Hgb 9.1 L Hct 29.7 L MCV 87.1 MCH 26.7 MCHC 30.6 RDW 25.9 H Plt Count 257 MPV 9.5 Neut % (Auto) 69.0 Lymph % (Auto) 21.6 Edwards % (Auto) 7.4 Eos % (Auto) 1.0 Baso % (Auto) 0.5 Neut # (Auto) 8.7 H Lymph # (Auto) 2.7 Edwards # (Auto) 0.9 H Eos # (Auto) 0.1 Baso # (Auto) 0.1 Abs Immat Gran (auto) 0.06 H Imm/Tot Granulo (auto) 0.5 Discharge Plan Discharge Disposition: Home, Self-Care Condition: Good Assessment: clinical exam nonfocal, ok for discharge Plan of Treatment: discharge home Discharge Medications: Continued Flintstones Gummies Tablet,Chewable 1 tab PO DAILY omeprazole 20 mg capsule,delayed release(DR/EC) 20 mg PO DAILY Activity: increase activity as tolerated Activity Detail: no sex six weeks, walking only exercise for six weeks, may climb stairs, no heavy lifting six weeks Diet: regular diet Print Language: Yoruba Patient Instructions: Vaginal Delivery (DC) Activity Restrictions/Additional Instructions: as above Forms: Portal Instructions Follow Up Appointments: make exam appointment for six weeks post delivery Discharge location: home
[2024-08-25] MEDS: IBUPROFEN 600 MG TABLET PO (06:23)
[2024-08-25 06:25] VITALS: BP 123/87; PULSE 94
[2024-08-25 08:11] VITALS: BP 121/62; PULSE 73; TEMP 36.9
[2024-08-25] MEDS: DOCUSATE SODIUM 100 MG CAPSULE PO (08:12)
[2024-08-25] MEDS: IRON PS COMPLEX/B12/FOLIC ACID CAPSULE 1 CAP PO (08:13)
[2024-08-25] MEDS: MEASLES,MUMPS,RUBELLA VACC/PF 0.5 ML VIAL SQ (10:19)
[2024-08-25] MEDS: FLU VAC QS 2024(6MS UP)CEL/PF 60 MCG/0.5 ML SYRINGE IM (11:15)
--- OUTSIDE RECORDS SUMMARY | 2024-08-26 09:55 | XMS_ITS | CCD ---
Author Organization [facility] Care Team Providers Care System Programmer Name Role Phone Adonay ([facility]), ALVARADO Cameron Attending Provider Health Dept, Jerry Mcleod Primary Care Provider Adonay ([facility]), Madeline Cameron Attending Unavailabl e Adonay ([facility]), Madeline Cameron Admitting Unavailabl e Health Dept, [...] Active magnesium oxide 400 mg oral tablet (9 sources) Start: 08-03-2024 End: 09-02-2024 take 1 tablet by mouth once daily magnesium oxide (Mag-Ox) 400 MG tablet Indications: Nonintractable headache, unspecified chronicity pattern, unspecified headache type Take 1 tablet (400 mg) by mouth Daily 30 tablet 6 08/03/2024 09/02/2024 Active omeprazole 20 mg delayed release oral capsule (12 sources) Proton Pump Inhibitor Start: 07-05-2024 End: 10-03-2024 take 1 capsule by mouth before mealtime omeprazole (PriLOSEC) [address] capsule Indications: Gastroesophageal Reflux Disease , Heartburn Take 1 capsule (20 mg) by mouth in the morning. Take before meals. Do not crush or chew.. 30 capsule 2 07/05/2024 10/03/2024 Active polysaccharide iron complex 391 mg oral capsule (11 sources) Start: 08-03-2024 End: 09-02-2024 take 1 capsule by mouth once daily iron polysaccharides (ProFe) 391.3 (180 Fe) MG capsule Indications: Low iron Take 1 capsule (391.3 mg) by mouth Daily 30 capsule 2 08/03/2024 09/02/2024 Active Prenat w/o U-SE-Vdnvoep-FA-DHA (PNV-DHA) 27-0.6-0.4-300 MG capsule (12 sources) Start: 12-31-2023 take 1 capsule by mouth once daily Prenat w/o O-MD-Yrsvfgd-FA-DHA (PNV-DHA) 27-0.6-0.4-300 MG capsule Take 1 capsule [...] Name Value Interpretation Reference Range Facil ity ALL CBC WITH AUTO DIFFon BASOPHILS ABSOLUTE AUTO 0.1 [facility] Basophils/100 WBC (Bld) 0.5 % 0.2 - 2.0 % [facility] Eosinophils/100 WBC (Bld) 1 % 0.9 - 7.0 % [facility] Erythrocyte distribution width (RBC) [Ratio] 25.9 % High 11.0 - 15.0 % [facility] Hematocrit (Bld) [Volume fraction] 29.7 % Low 36.0 - 48.0 % [facility] Hemoglobin (Bld) [Mass/Vol] 9.1 g/dL Low 12.0 - 16.0 g/dL [facility] IMMATURE GRANULOCYTES ABS AUTO 0.06 High [facility] Immature granulocytes/100 WBC (Bld) 0.5 % 0.0 - 0.5 % [facility] Interpretation and review of laboratory results Abnormal [facility] LYMPHOCYTES ABSOLUTE AUTO 2.7 [facility] Lymphocytes/100 WBC (Bld) 21.6 % 20.5 - 60.0 % [facility] MCH (RBC) [Entitic mass] 26.7 pg 26.7 - 34.0 pg [facility] MCHC (RBC) [Mass/Vol] 30.6 g/dL 29.9 - 35.2 g/dL [facility] MCV (RBC) [Entitic vol] 87.1 fL 81.0 - 99.0 fL [facility] MONOCYTES ABSOLUTE AUTO 0.9 High [facility] Monocytes/100 WBC (Bld) 7.4 % 1.7 - 12.0 % [facility] NEUTROPHILS ABSOLUTE AUTO 8.7 High [facility] Neutrophils/100 WBC (Bld) 69 % 43.0 - 75.0 % [facility] Platelet mean volume (Bld) [Entitic vol] 9.5 fL 9.5 - 13.5 fL [facility] # 0.1 [facility] PLT 257 [facility] TB RBC 3.41 Low [facility] Healthcar e Comment on above: 2+ ANSIOCYTOSIS 1+ OVALOCYTES TBH WBC 12.6 High [facility] e [facility] Healthcar e HMHP CBC WITH PLATELET NO DI FFERENTIALon 08-23-2024 Erythrocyte distribution width (RBC) [Ratio] 26.4 % High 11.0 - 15.0 % [facility] Hematocrit (Bld) [Volume fraction] 34.6 % Low 36.0 - 48.0 % [facility] Hemoglobin (Bld) [Mass/Vol] 10.5 g/dL Low 12.0 - 16.0 g/dL [facility] Interpretation and review of laboratory results Abnormal [facility] MCH (RBC) [Entitic mass] 26.4 pg Low 26.7 - 34.0 pg [facility] MCHC (RBC) [Mass/Vol] 30.3 g/dL 29.9 - 35.2 g/dL [facility] MCV (RBC) [Entitic vol] 86.9 fL 81.0 - 99.0 fL [facility] Platelet mean volume (Bld) [Entitic vol] 9.8 fL 9.5 - 13.5 fL [facility] Healthc are TBH PLT 335 [facility] TB RBC 3.98 Low [facility] e TB WBC 10.2 [facility] e TB UA (CLEAN/CATCH) REGISTRATION COORDINATOR/HERO RO IF IND.on 08-19-2024 BILIRUBIN URINE Negative NEGATIVE [facility] BLOOD URINE Negative NEGATIVE [facility] re Clarity (U) CLEAR CLEAR [facility] re Color (U) LT. YELLOW YELLOW [facility] GLUCOSE URINE UA Negative NEGATIVE mg/dL [facility] Interpretation and review of laboratory results Abnormal [facility] Ketones Ql (U) TRACE Abnormal NEGATIVE mg/dL [facility] Leukocyte esterase Test strip Ql (U) SMALL Abnormal NEGATIVE [facility] e NITRITE URINE Negative NEGATIVE [facility] care pH (U) 6.5 [pH] 5.0 - 9.0 [facility] Health[facility] e PROTEIN URINE Negative NEG/TRACE mg/dL [facility] SPECIFIC GRAVITY URINE 1.020 1.005 - 1.025 [facility] URINE MICROSCOPIC INDICATED YES [facility] UROBILINOGEN URINE 1.0 EU/dL 0.2 - 1.0 EU/dL [facility] Health[facility] e Urinalysis macro (dipstick) panel (U)on 08-16-2024 Bilirubin, UA Negative Negative - 4(70) +++ mg/dL [facility] Blood, UA Negative Negative - 50 Jona/mcL [facility] Clarity, UA Clear [facility] Healthca re Color, UA Yellow [facility] Glucose, UA Negative Negative - 1999(110) ++++ mg/dL [facility] Interpretation and review of laboratory results Normal [facility] Ketones, UA Negative Negative - 160(16) ++++ mg/dL [facility] Leukocytes, UA Negative Negative - 500+++ Diane/mcL [facility] Nitrite, UA Negative Negative - Positive [facility] pH, UA 7 5 - 9 [facility] Health[facility] e Protein, UA Negative Negative - 1999(20) ++++ mg/dL [facility] Spec Grav, UA 1.015 1 - 1.03 [facility] Urobilinogen, UA 1.0 0.2 - 12 mg/dL [facility] Urinalysis macro (dipstick) panel (U)on 08-10-2024 Bilirubin, UA Negative Negative - 4(70) +++ mg/dL [facility] Blood, UA Negative Negative - 50 Jona/mcL [facility] Healthcare Clarity, UA Clear [facility] Health[facility] re Color, UA Yellow [facility] Glucose, UA Negative Negative - 1999(110) ++++ mg/dL [facility] Interpretation and review of laboratory results Abnormal [facility] Ketones, UA Negative Negative - 160(16) ++++ mg/dL [facility] Leukocytes, UA Positive Negative - 500+++ Diane/mcL [facility] Comment on above: small Nitrite, UA Negative Negative - Positive [facility] pH, UA 7 5 - 9 [facility] Protein, UA Negative Negative - 1999(20) ++++ mg/dL [facility] Spec Grav, UA 1.025 1 - 1.03 [facility] Urobilinogen, UA 1.0 0.2 - 12 mg/dL [facility] Urinalysis macro (dipstick) panel (U)on 08-03-2024 Bilirubin, UA Negative Negative - 4(70) +++ mg/dL [facility] Blood, UA Negative Negative - 50 Jona/mcL [facility] Healthcare Clarity, UA Clear [facility] Healthca re Color, UA Yellow [facility] Glucose, UA Negative Negative - 1999(110) ++++ mg/dL [facility] Interpretation and review of laboratory results Abnormal [facility] Ketones, UA Negative Negative - 160(16) ++++ mg/dL [facility] Leukocytes, UA Trace Negative - 500+++ Diane/mcL [facility] Nitrite, UA Negative Negative - Positive [facility] pH, UA 5.5 5 - 9 [facility] Protein, UA Negative Negative - 2000(20) ++++ mg/dL [facility] Spec Grav, UA 1.015 1 - 1.03 [facility] care Urobilinogen, UA 1.0 0.2 - 12 mg/dL [facility] US OB >= 14 weeks Fetuson US OB >= 14 weeks Fetus [facility] Main [place] [address] [place] [address] Ultrasound Report Signed Patient: Casandra Dias MR#: [id number] : 2005 Acct:[id number] Age/Sex: 18 / F ADM Date: 01/08/24 Loc: Room: Type: [facility] Attending Dr: Madeline Urias ([facility]) ALVARADO Ordering Provider: Madeline Urias APRN, WHCNP Date of Service: 01/08/24 US/US OB >= 14 weeks Fetus: [id number] Copies to: Madeline Urias APRN KATHY US OB >= 14 weeks Fetus 01/08/2024 [...] Henri Mario M.D.01/08/2024 4:22 PM Dictation Location: [place] [address] Tech: Barbara Nuñez Transcribed By: TYLER 01/08/24 8003 Dictated By: Henri Mario II, MD 01/08/24 1617 Signed By: 01/08/24 1622 Normal [facility] Vital Signs Date Time Vital Sign Value Performing Clinician Amado gricelda 08-16-2024 10:01-0400 Body weight 72.3 kg Avery Carolina DO Work Phone: [facility] 08-16-2024 10:01-0400 Diastolic blood pressure 66 mm[Hg] Avery Carolina DO Work Phone: [facility] 08-16-2024 10:01-0400 Systolic blood pressure 104 mm[Hg] Avery Carolina DO Work Phone: [facility] 08-10-2024 10:34-0400 Body weight 71.89 kg Avery Carolina DO Work Phone: [facility] 08-10-2024 10:34-0400 Diastolic blood pressure 62 mm[Hg] Avery Carolina DO Work Phone: [facility] 08-10-2024 10:34-0400 Systolic blood pressure 116 mm[Hg] Avery Carolina DO Work Phone: [facility] 08-03-2024 11:16-0400 Body weight 72.63 kg Brandi DOTY Work Phone: [facility] 08-03-2024 11:16-0400 Diastolic blood pressure 70 mm[Hg] Brandi DOTY Work Phone: [facility] 08-03-2024 11:16-0400 Systolic blood pressure 120 mm[Hg] Brandi DOTY Work Phone: [facility] Healthcare Encounters Encounter Date Encounter Type Care Provider Facility Start: 08-24-2024 End: 08-24-2024 [facility] Result Encounter Avery Carolina DO Work Phone: [facility] External Department Unsolicited Start: 08-24-2024 End: 08-24-2024 [facility] Result Encounter Avery Carolina DO Work Phone: [facility] External Department Unsolicited Start: 08-23-2024 End: 08-23-2024 [facility] Result Encounter Avery Carolina DO Work Phone: [facility] External Department Unsolicited Start: 08-23-2024 End: 08-23-2024 [facility] Result Encounter Avery Carolina DO Work Phone: [facility] External Department Unsolicited Start: 08-19-2024 End: 08-19-2024 [facility] Result Encounter Avery Carolina DO Work Phone: [facility] External Department Unsolicited Start: 08-19-2024 End: 08-19-2024 [facility] Result Encounter Avery Carolina DO Work Phone: [facility] External Department Unsolicited Start: 08-16-2024 End: 08-16-2024 Bamboo flowsheet Avery Carolina DO Work Phone: [facility] Start: 08-16-2024 End: 08-16-2024 Bamboo flowsheet Avery Carolina DO Work Phone: [facility] Start: 08-16-2024 End: 08-16-2024 flow sheet Avery Carolina DO Work Phone: [facility] Comment on above: Third trimester preg jayden; 38 weeks gestation of Start: 08-16-2024 End: 08-16-2024 ambulatory AVERY CAROLINA Not Available Start: 08-10-2024 End: 08-10-2024 Bamboo flowsheet Avery Carolina DO Work Phone: [facility] Start: 08-10-2024 End: 08-10-2024 Bamboo [...] [facility] Start: 08-03-2024 End: 08-03-2024 Bamboo flowsheet Brandi DOTY Work Phone: [facility] Start: 08-03-2024 End: 08-03-2024 flow sheet Brandi DOTY Work Phone: [facility] Comment on above: 36 [...] 01-08-2024 End: 01-08-2024 ambulatory Madeline Urias ([facility]) Facility:[facility] Start: 01-08-2024 End: 01-08-2024 ambulatory [facility] Work Phone: [facility] Work Phone: Start: 01-08-2024 End: 01-08-2024 Patient encounter procedure [facility] Work Phone: [facility] Main [place] Work Phone: Procedures Date Procedure Procedure Detail Performing Clinician Start: 08-24-2024 ALL CBC WITH AUTO DIFF Avery Carolina DO Work Phone: Start: 08-23-2024 HM[facility] CBC WITH PLATEL ET NO DIFFERENTIAL Avery Carolina DO Work Phone: Start: 08-19-2024 TBH UA (CLEAN/CATCH) REGISTRATION COORDINATOR/MICRO IF IND. Avery Carolina DO Work Phone: Start: 08-16-2024 Urnls dip stick/tabl et rgnt non-auto w/o micrscp Avery Carolina DO Work Phone: Start: 08-10-2024 Urnls dip stick/tabl et rgnt non-auto w/o micrscp Avery Carolina DO Work Phone: Start: 08-03-2024 Urnls dip stick/tabl et rgnt non-auto w/o micrscp Brandi DOTY Work Phone: Start: 01-08-2024 [facility]oun d [facility] gravid [facility] Work Phone: Plan of Treatment Date Care Activity Detail Author Start: 08-23-2024 Chart abstracting 08/23/2024 A bstract [facility] [address] [place] [address] Avery Figueroa, DO [address] [place], [place] [id number] [facility] Start: 08-16-2024 End: 08-16-2024 Patient encounter procedure [facility] Comment on above: Arrived Start: 08-10-2024 End: 08-10-2024 Patient encounter procedure 08/10/2024 10:00 AM EDT Routine [facility] [address] [place] [id number] Avery Figueroa, DO [address] [place], [place] [id number] [facility] Start: 08-03-2024 End: 08-03-2025 Strep B DNA probe, amplification Strep B DNA probe, amplification Lab Routine Third trimester Expected: 08/03/2024 (Approximate), Expires: 08/03/2025 [facility] Work Phone: Comment on above: Expected: 08/03/2024 (Approximate), Expires: 08/03/2025 Start: 08-03-2024 End: 08-03-2024 Patient encounter procedure 08/03/2024 11:10 AM EDT Routine [facility] [address] [facility] [place] [address] Brandi Vasquez PA [address] [place] [address] Arrived [facility] Comment on above: Arrived Start: 06-27-2024 Influenza vaccination Influenza Vacc ine (#1) [facility] Immunizations Immunization Date Immunization Notes Care Provider Fa cility 08-13-2023 influenza virus vacc ine, unspecified formulation Brandi DOTY Work Phone: [facility] Payers Date Payer Category Payer Medicaid [id number] 2024 Medicaid [id number] 2024 Self-pay 2023 [facility] BCBS [id number] 2023 Unknown BCBS BCBS [id number] [id number] 2023-Present [phone] [address] [place] [address] [id number] 2023 Unknown [id number] 2004 Unknown [id number]. 9 2004 Unknown [id number] [id number]. 9 2004 Unknown [id number] [id number]. 1258 2004 Unknown [id number] [id number]. 9 2004 Unknown [id number] [id number]. 9 2004 Unknown [id number] [id number]. 9 2004 Unknown [id number] 2.16.840.1.286655.3.579.2. 9 2004 Unknown [id number] [id number]. 9 2004 Unknown [id number] [id number]. 1259 Unknown [id number] [id number]. 531 Social History Date Type Detail Facility [facility] Work Phone: Start: 2005 Sex Assigned At Female [facility] consumption unknown [facility] Start: 12-08-2023 [facility] Start: 03-16-2024 Gender identity Identifies as female gender (finding) [facility] Start: 03-16-2024 Sexual orientation Heterosexual (finding) [facility] History of Present illness Narrative 08-16-2024 Madeline Ibarra, CHILDR[employer] SERV[employer] WORKER - 08/16/2024 9:40 AM EDT Note Date [...] Do not crush or chew. Prenat w/o N-PO-Gsjbefm-FA-DHA (PNV-DHA) 27-0.6-0.4-300 MG capsule 1 capsule, Oral, [...] nursing note reviewed. Exam conducted with a almond cutting machine tender present. Vitals: Estimated body mass index is [...] Do not crush or chew. Prenat w/o D-VD-Nifqgah-FA-DHA (PNV-DHA) 27-0.6-0.4-300 MG capsule 1 capsule, Oral, [...] nursing note reviewed. Exam conducted with a almond cutting machine tender present. Vitals: Estimated body mass index is [...] Do not crush or chew. Prenat w/o N-NY-Ujwzkrl-FA-DHA (PNV-DHA) 27-0.6-0.4-300 MG capsule 1 capsule, Oral, [...] nursing note reviewed. Exam conducted with a almond cutting machine tender present. Vitals: Estimated body mass index is [...] Note Facility Evaluation note No assessment information [facility] Work Phone: Evaluation note Note Date [...] Status: Active Member Role Status Dates [facility] Active Team Status: Inactive Member Role Status Dates Madeline Urias ([facility]) , CHOIR MEMBER Attending Provider Active Start: January 08, 2024 End: January 08, 2024 [facility] Active Start: January 08, 2024 End: January 08, 2024 System Programmer Relationship Specialty Start Date End Date Dustin Lanza, DO [address] [place] [address] PCP - General Family Medicine 03/04/23 System Programmer Relationship Specialty Start Date End Date Dustin Lanza, DO [address] [place] [address] PCP - General Family Medicine 03/04/23 System Programmer Relationship Specialty Start Date End Date Dustin Lanza, DO [address] [place] [address] PCP - General Family Medicine 03/04/23 System Programmer Relationship Specialty Start Date End Date Dustin Lanza, DO [address] [place] [address] PCP - General Family Medicine 03/04/23 System Programmer Relationship Specialty Start Date End Date Dustin Lanza, DO [address] [place] [address] PCP - General Family Medicine 03/04/23 System Programmer Relationship Specialty Start Date End Date Dustin Lanza DO [address] [place] [id number] PCP - General Family Medicine 03/04/23 System Programmer Relationship Specialty Start Date End Date Dustin Lanza DO [address] [place] [address] PCP - General Family Medicine 03/04/23 Goals (unrecognized section and content) Goals may be documented in a n alternate section INFORMATION SOURCE (unrecogn ized section and content) DATE CREATED AUTHOR 03/18/2024 [facility] DATE CREATED AUTHOR 'S ORGANIZ ATION 08/17/2024 [facility] dical Specialists EPIC Reason for [...] BE BASED ON THE PRIMARY CLINICAL RECORDS. [facility]. provides no warranty or guarantee of the accuracy or completeness of information in this document.
== END 2024-08-25 10:55 | disposition home or self-care (01) | DRG 807 ==
PROVIDERS: Admitting Provider Obstetrics & Gynecology; Visit Provider Obstetrics & Gynecology
DX: O99.02 Anemia complicating childbirth (principal); Z37.0 Single live birth; O70.1 Second degree perineal laceration during delivery; Z3A.39 39 weeks gestation of pregnancy
CPT/HCPCS: 36415; 51702; 59050; 59410; 80307; 85025; 85027; 86850; 86900; 86901; 90674; 90707; J0665; J2405; J2795